=== PATIENT | male | born 1930 | race Caucasian/White ===

== ENCOUNTER 2017-10-27 11:07 | Inpatient (IN) | payer MEDICARE ==
[~2017-10-27] VITALS: Ht 165.1 cm; Wt 105.7 kg
[~2017-10-27 11:07] MED LIST: ACETAMINOPHEN-1 EAC1; ACETAMINOPHEN-1 EAC1 PO; ALEVE220 MG PO; AMBIEN 10 MG TA10 MG PO; AMBIEN 5 MG TABL5 M1 PO; ASA5UEC PO; ASPIRIN EC81 M1 PO; AZITHROMYCIN 2250 MG PO; BENICAR20 MG PO; BENICAR40 MG PO; BYSTOLIC 5 MG5 M1 PO; CALCIUM 500 +1 EAC5 PO; CALCIUM MAGNES1 EAC2 PO; CARAFATE 1 GM TA1 G1 PO; CENTRUM SILVER1 EAC4 PO; CLARINEX5 MG; CLARINEX5 MG PO; CLEOCIN HCL300 MG PO; COUMADIN 5 MG TA5 M1 PO; COUMADIN7.5 MG PO; EDARBI80 MG PO; FLAGYL500 MG PO; FLONASE 0.05%50 MCG NASAL; FLOVENT DISKUS50 MCG IH; HYDROCODON-ACE1 EAC7 PO; HYDROCODONE-AP1 EAC6 PO; IMDUR 60 MG TAB60 M1 PO; KEFLEX500 M1 PO; LASIX 40 MG TAB40 M1 PO; LASIX 40 MG TAB40 M2 PO; LINZESS145 MCG PO; LIPITOR 20 MG T20 M1 PO; LIPITOR20 MG PO; MINOCIN100 MG PO; NITROGLYCERIN0.4 MG PO; OMEGA-31000 M1 PO; OMEPRAZOLE20 M2 PO; ONDANSETRON HCL4 M2 PO; PHENERGAN 25 MG25 M1 PO; POTASSIUM20 PO; PREDNISONE 10 M10 MG PO; PRESERVISION A1 EAC2 PO; PRESERVISION L1 EACH PO; PROSCAR 5MG TABL5 MG PO; RESTORIL15 MG PO; TRAZODONE HCL50 MG PO; TYLENOL W/CODEI1 TA2 PO; VERTICALM25 MG PO; XANAX 0.25 MG0.25 MG PO; XARELTO20 MG PO; ZOFRAN ODT4 MG PO; [UNRECOGNIZED DRUG - SUPPLY] PO
[2017-10-27 11:16] VITALS: BP 183/83
[2017-10-27 11:46] LABS: HEMATOCRIT 33.9 % (42.0-52.0); HEMOGLOBIN 10.7 gm/dL (14.0-18.0); MCH 26.4 pg (26.0-34.0); MCHC 31.5 g/dL (28.0-37.0); MCV 83.9 fL (80.0-100.0); MPV 7.4 fl. (7.2-11.1); NUCLEATED RBCS 0 /100WBC; PLATELET COUNT* 210 thou/uL (150-400); RBC 4.04 mil/uL (4.50-6.00); RDW-CV 16.8 % (10.5-14.5)
[2017-10-27 11:54] LABS: ANION GAP 8 mmol/L (7-16); BUN 20 mg/dL (7-18); CALCIUM 8.5 mg/dL (8.5-10.1); CHLORIDE 110 mmol/L (98-107); CO2 27 mmol/L (21-32); CREATININE 0.8 mg/dL (0.6-1.3); GLUCOSE 146 mg/dL (70-99); POTASSIUM 3.7 mmol/L (3.5-5.1); SODIUM 145 mmol/L (136-145)
[2017-10-27 12:01] LABS: ALBUMIN 3.2 g/dL (3.4-5.0); ALKALINE PHOSPHATASE 149 U/L (46-116); LIPASE 67 U/L (73-393); SGOT 33 U/L (15-37); SGPT 41 U/L (30-65); TOTAL BILIRUBIN 0.5 mg/dL (<0.1-1.0); TOTAL PROTEIN 6.8 g/dL (6.4-8.2); TROPONIN-I LEVEL <0.06 ng/mL (<0.06)
[2017-10-27 12:13] LABS: ABSOLUTE EOSINOPHILS 0.4 thou/uL (0.0-0.7); ABSOLUTE LYMPHOCYTES 1.9 thou/uL (0.8-5.3); ABSOLUTE MONOCYTES 1.3 thou/uL (0.0-1.2); ABSOLUTE NEUTROPHILS 15.4 thou/uL (1.6-8.1); OVALOCYTES 1+; PLATELET ESTIMATE ADEQUATE
[2017-10-27 12:14] LABS: HYPOCHROMASIA 1+
[2017-10-27 12:15] LABS: ANISOCYTOSIS 1+; POIKILOCYTOSIS 1+
[2017-10-27] MEDS ORDERED: ASA81BEC PO (14:00)
[2017-10-27] MEDS ORDERED: IMDUR 60 MG TAB60 M1 PO (14:01)
[2017-10-27] MEDS ORDERED: RESTORIL15 MG PO (14:01)
[2017-10-27] MEDS ORDERED: XARELTO20 MG PO (14:01)
[2017-10-27] MEDS ORDERED: PHENERGAN 25 MG25 M1 PO (14:02)
[2017-10-27 15:00] VITALS: BP 152/44
--- NOTE | 2017-10-27 16:42 | EKG ---
[place] [address] ELECTROCARDIOGRAM REPORT Name: TEODORO LYN Room: [address] ADM IN M.R.#: [id number] Admission: 10/27/17 Attend Phys: Zenon Grimaldo MD Discharge: Date of : 31 Report #: [id number] THIS REPORT FOR: //name// [facility] ED Test Date: 2017-10-27 Test Time: 11:42:48 Pat Name: TEODORO LYN Department: Room: [facility] Gender: Consumer Insight Analyst: Bebeto SALGUERO : 1930 Requested By: Mati Jacome Order Number: [id number] MD: Fred Avila Measurements Intervals [place] Rate: 60 P: 154 OK: 105 QRS: -72 QRSD: 203 T: 72 QT: 486 QTc: 486 Interpretive Statements Ventricularly paced rhythm Compared to ECG 07/11/2017 19:30:04 No significant changes noted Electronically Signed On 10-27-2017 16:42:05 CDT by Fred Avila [email or web address] <ELECTRONICALLY SIGNED> By: Fred Avila MD, [facility] 10/27/17 1642 1142 1142 Fred Avila MD, [facility] /EPI
[2017-10-27 20:00] VITALS: BP 116/48
[2017-10-28] VITALS: BP 114/48
[2017-10-28 04:36] VITALS: BP 120/46
[2017-10-28 05:08] LABS: CREATININE 0.8 mg/dL (0.6-1.3); MAGNESIUM 1.4 mg/dL (1.8-2.4); POTASSIUM 3.6 mmol/L (3.5-5.1)
[2017-10-28 06:05] LABS: ABSOLUTE EOSINOPHILS 0.5 thou/uL (0.0-0.7); ABSOLUTE LYMPHOCYTES 1.1 thou/uL (0.8-5.3); ABSOLUTE MONOCYTES 0.9 thou/uL (0.0-1.2); ABSOLUTE NEUTROPHILS 8.1 thou/uL (1.6-8.1); BASOPHILS 0.3 %; EOSINOPHILS 4.4 %; HEMATOCRIT 27.1 % (42.0-52.0); HEMOGLOBIN 8.8 gm/dL (14.0-18.0); LYMPHOCYTES 10.5 %; MCH 26.9 pg (26.0-34.0); MCHC 32.5 g/dL (28.0-37.0); MONOCYTES 8.7 %; NUCLEATED RBCS 0 /100WBC; PLATELET COUNT* 171 thou/uL (150-400); POLYS 76.1 %; RBC 3.26 mil/uL (4.50-6.00); RDW-CV 16.9 % (10.5-14.5); WBC 10.6 thou/uL (4.0-11.0)
[2017-10-28 08:00] VITALS: BP 136/61
[2017-10-28 11:43] VITALS: BP 131/63
[2017-10-28 16:00] VITALS: BP 143/75
[2017-10-28 20:00] VITALS: BP 124/56
[2017-10-28 23:43] LABS: CREATININE 0.8 mg/dL (0.6-1.3); MAGNESIUM 1.6 mg/dL (1.8-2.4); POTASSIUM 3.7 mmol/L (3.5-5.1)
[2017-10-29] VITALS: BP 138/63
[2017-10-29 04:00] VITALS: BP 141/71
[2017-10-29 05:20] LABS: ABSOLUTE EOSINOPHILS 0.5 thou/uL (0.0-0.7); ABSOLUTE LYMPHOCYTES 1.5 thou/uL (0.8-5.3); ABSOLUTE MONOCYTES 0.8 thou/uL (0.0-1.2); ABSOLUTE NEUTROPHILS 5.4 thou/uL (1.6-8.1); BASOPHILS 0.3 %; EOSINOPHILS 6.5 %; HEMATOCRIT 27.7 % (42.0-52.0); HEMOGLOBIN 8.9 gm/dL (14.0-18.0); MCH 26.6 pg (26.0-34.0); MCHC 32.2 g/dL (28.0-37.0); MCV 82.5 fL (80.0-100.0); MONOCYTES 9.8 %; MPV 7.6 fl. (7.2-11.1); NUCLEATED RBCS 0 /100WBC; PLATELET COUNT* 164 thou/uL (150-400); POLYS 65.4 %; RBC 3.35 mil/uL (4.50-6.00); WBC 8.3 thou/uL (4.0-11.0)
[2017-10-29 07:21] LABS: ALBUMIN 2.6 g/dL (3.4-5.0); CALCIUM 8.4 mg/dL (8.5-10.1); CREATININE 0.9 mg/dL (0.6-1.3); POTASSIUM 3.8 mmol/L (3.5-5.1); TOTAL BILIRUBIN 0.4 mg/dL (<0.1-1.0); TOTAL PROTEIN 5.7 g/dL (6.4-8.2)
[2017-10-29 08:26] VITALS: BP 160/69
[2017-10-29 08:55] LABS: URINE BILIRUBIN NEGATIVE (Negative); URINE BLOOD 2+ (Negative); URINE CLARITY CLEAR; URINE COLOR YELLOW; URINE GLUCOSE-RANDOM NEGATIVE (Negative); URINE KETONES NEGATIVE (Negative); URINE LEUKOCYTES-REFLEX NEGATIVE (Negative); URINE NITRITE-REFLEX NEGATIVE (Negative); URINE PROTEIN TRACE (Negative); URINE SPECIFIC GRAVITY 1.025 (1.005-1.030); URINE UROBILINOGEN 0.2 E.U./dl (0.2-1.0)
[2017-10-29 09:01] LABS: BACTERIA-REFLEX 1-9 Few /HPF (None Seen); CASTS None Seen /LPF (None Seen); CRYSTALS None Seen /LPF (None Seen); SQUAMOUS 0-3 Few /LPF (0-3); URINE WBC-REFLEX None Seen /HPF (0-5)
[2017-10-29 12:22] VITALS: BP 163/65
[2017-10-29 14:00] VITALS: BP 151/69
[2017-10-29 20:00] VITALS: BP 147/70
[2017-10-30] VITALS: BP 131/64
[2017-10-30 04:00] VITALS: BP 165/88
[2017-10-30 05:12] LABS: HEMATOCRIT 27.6 % (42.0-52.0); MCH 26.9 pg (26.0-34.0); MCHC 32.6 g/dL (28.0-37.0); MCV 82.5 fL (80.0-100.0); MPV 7.8 fl. (7.2-11.1); RBC 3.35 mil/uL (4.50-6.00); RDW-CV 16.8 % (10.5-14.5); WBC 7.5 thou/uL (4.0-11.0)
[2017-10-30 06:47] LABS: ALBUMIN 2.6 g/dL (3.4-5.0); CALCIUM 8.2 mg/dL (8.5-10.1); CREATININE 0.8 mg/dL (0.6-1.3); MAGNESIUM 1.9 mg/dL (1.8-2.4); POTASSIUM 3.8 mmol/L (3.5-5.1); TOTAL BILIRUBIN 0.5 mg/dL (<0.1-1.0); TOTAL PROTEIN 5.4 g/dL (6.4-8.2)
[2017-10-30 08:00] VITALS: BP 150/78
[2017-10-30 11:43] VITALS: BP 151/69
== END 2017-10-30 18:02 | disposition left against medical advice (07) | DRG 871 ==
LOC: M.ERS 11:07 → M.2W 13:16 → M.TBA-ER 13:16 → M.2W 15:20
PROVIDERS: Family Medicine; Internal Medicine; ADMIT Internal Medicine
DX: A41.9 Sepsis, unspecified organism (principal); J69.0 Pneumonitis due to inhalation of food and vomit; I50.32 Chronic diastolic (congestive) heart failure; I10 Essential (primary) hypertension; H35.30 Unspecified macular degeneration; I25.10 Atherosclerotic heart disease of native coronary artery without angina pectoris; M19.90 Unspecified osteoarthritis, unspecified site; G89.29 Other chronic pain; E87.8 Other disorders of electrolyte and fluid balance, not elsewhere classified; R31.29 Other microscopic hematuria; R26.81 Unsteadiness on feet; Z87.442 Personal history of urinary calculi; I25.2 Old myocardial infarction; Z95.5 Presence of coronary angioplasty implant and graft; Z95.0 Presence of cardiac pacemaker; Z90.49 Acquired absence of other specified parts of digestive tract; Z79.01 Long term (current) use of anticoagulants; Z79.82 Long term (current) use of aspirin; Z79.899 Other long term (current) drug therapy; Z88.1 Allergy status to other antibiotic agents; Z88.6 Allergy status to analgesic agent; Z88.8 Allergy status to other drugs, medicaments and biological substances

== ENCOUNTER → 2017-11-14 | Outpatient (CLI) | payer MEDICARE ==
[~2017-11-14] MED LIST changes: +ASA81BEC PO
== END ==
LOC: M.RAD 12:49
DX: J18.9 Pneumonia, unspecified organism (principal)

== ENCOUNTER → 2017-12-30 | Outpatient (CLI) | payer MEDICARE | LOC: M.RAD 10:24 | DX: I51.7 Cardiomegaly (principal); J98.11 Atelectasis; Z95.0 Presence of cardiac pacemaker ==

== ENCOUNTER 2018-12-15 05:36 | Emergency (ER) | payer MEDICARE ==
[~2018-12-15] VITALS: Ht 162.6 cm; Wt 95.3 kg
[2018-12-15] MEDS ORDERED: [UNRECOGNIZED DRUG - OTHER] (06:08)
[2018-12-15] MEDS ORDERED: ERYTHROMYCIN E3.5 G3 OPHTHALMIC (06:09)
[2018-12-15 07:04] LABS: HEMATOCRIT 35.3 % (42.0-52.0); HEMOGLOBIN 11.8 gm/dL (14.0-18.0); MCH 31.5 pg (26.0-34.0); MCHC 33.5 g/dL (28.0-37.0); MCV 93.9 fL (80.0-100.0); MPV 7.4 fl. (7.2-11.1); RBC 3.75 mil/uL (4.50-6.00); RDW-CV 16.2 % (10.5-14.5); WBC 5.6 thou/uL (4.0-11.0)
[2018-12-15 07:09] LABS: CALCIUM 8.6 mg/dL (8.5-10.1); CREATININE 0.7 mg/dL (0.6-1.3); POTASSIUM 3.5 mmol/L (3.5-5.1)
[2018-12-15 07:14] LABS: TOTAL BILIRUBIN 0.7 mg/dL (<0.1-1.0); TOTAL PROTEIN 6.2 g/dL (6.4-8.2)
[2018-12-15 07:48] VITALS: BP 158/74
== END 2018-12-15 07:49 | disposition home or self-care (01) ==
LOC: M.ERS 05:36
PROVIDERS: Emergency Medicine Emergency Medical Services
DX: K92.2 Gastrointestinal hemorrhage, unspecified (principal); I10 Essential (primary) hypertension; G47.30 Sleep apnea, unspecified; H35.30 Unspecified macular degeneration; Z88.1 Allergy status to other antibiotic agents; Z88.8 Allergy status to other drugs, medicaments and biological substances; Z88.6 Allergy status to analgesic agent; Z87.442 Personal history of urinary calculi; Z95.5 Presence of coronary angioplasty implant and graft; Z95.0 Presence of cardiac pacemaker; Z90.49 Acquired absence of other specified parts of digestive tract

== ENCOUNTER 2019-02-10 05:32 | Inpatient (IN) | payer MEDICARE ==
[~2019-02-10] VITALS: Ht 165.1 cm; Wt 93.9 kg
[~2019-02-10 05:32] MED LIST changes: +APAP650 PO; +CARVEDILOL3.125 MG PO; +CEFUROXIME250 MG PO; +CLOPIDOGREL75 MG PO; +DIOVAN160 MG PO; +ERYTHROMYCIN E3.5 G3 OPHTHALMIC; +NITROGLYCERIN0.4 MG SUBLING; +[UNRECOGNIZED DRUG - OTHER]
[2019-02-10 05:35] VITALS: BP 125/77
[2019-02-10 05:57] LABS: ABSOLUTE BASOPHILS 0.1 thou/uL (0.0-0.2); ABSOLUTE EOSINOPHILS 0.1 thou/uL (0.0-0.7); ABSOLUTE LYMPHOCYTES 0.8 thou/uL (0.8-5.3); ABSOLUTE NEUTROPHILS 10.4 thou/uL (1.6-8.1); BASOPHILS 0.9 %; EOSINOPHILS 0.9 %; HEMATOCRIT 34.2 % (42.0-52.0); HEMOGLOBIN 11.5 gm/dL (14.0-18.0); LYMPHOCYTES 6.3 %; MCH 32.6 pg (26.0-34.0); MCHC 33.7 g/dL (28.0-37.0); MCV 96.9 fL (80.0-100.0); MONOCYTES 8.4 %; MPV 7.2 fl. (7.2-11.1); NUCLEATED RBCS 0 /100WBC; PLATELET COUNT* 218 thou/uL (150-400); POLYS 83.5 %; RBC 3.53 mil/uL (4.50-6.00); RDW-CV 14.2 % (10.5-14.5); WBC 12.5 thou/uL (4.0-11.0)
[2019-02-10 06:08] LABS: APTT 50.1 Seconds (25.0-31.3); INR 1.3; PROTIME 12.8 Seconds (9.20-11.50)
[2019-02-10 06:12] LABS: CALCIUM 8.9 mg/dL (8.5-10.1); CREATININE 0.8 mg/dL (0.6-1.3); POTASSIUM 3.8 mmol/L (3.5-5.1)
[2019-02-10 06:22] LABS: ALBUMIN 2.6 g/dL (3.4-5.0); TOTAL BILIRUBIN 0.7 mg/dL (<0.1-1.0); TOTAL PROTEIN 6.9 g/dL (6.4-8.2); TROPONIN-I LEVEL 0.09 ng/mL (<0.06)
[2019-02-10 07:10] LABS: BE -4.5 mmol/L (-2 to +3); PCO2 33.6 mmHg (35.0-45.0); PO2 107.1 mmHg (75.0-100.0); pH 7.388 (7.340-7.450)
[2019-02-10 08:34] VITALS: BP 111/53
[2019-02-10 08:40] VITALS: BP 112/61
--- NOTE | 2019-02-10 12:57 | NUR ---
PT ADMITTED TO ROOM 218 VIA CART FROM ED AT APPROXIMATELY 0840. PT ORIENTED TO ROOM AND CALL LIGHT. ADMISSION ASSESSMENT AND HISTORY COMPLETED. REFER TO CHARTING. MEDICARE AND FALL AGREEMENT SIGNED AND PLACED IN FRONT OF CHART. SEPSIS SCREENING COMPLETED- PT SCREENED NEGATIVE. PT ADMITTED WITH ABDOMINAL PAIN AND PULMONARY INFILTRATES. PT DENIES ANY ABDOMINAL PAIN AT THIS TIME. COMPLAINS OF GENERALIZED ARTHRITIC PAIN. TREATED WITH PRN TYLENOL WITH CODEINE WITH RELIEF. PT TRACING V PACED ON THE HYDROMETEOROLOGIST WITH OCCASIONAL PVC'S. PT ON 2L NC SAT 98%. PT STATES HE WEARS 4L NC AT HOME. PT UP WITH 1 ASSIST AND WALKER TO BATHROOM. PT GOAL FOR TODAY IS TO REMAIN FREE FROM ABDOMINAL PAIN, MONITOR EKG, LABS AND IV ABX. AM ASSESSMENT CHARTED. MEDICATIONS PER SEP. PT REPOSITIONS SELF WITH REMINDERS. HOURLY ROUNDING OBSERVED. BED IN LOW POSITION. CALL LIGHT WITHIN REACH. WILL CONTINUE PLAN OF CARE.
[2019-02-10 13:35] VITALS: BP 101/48
[2019-02-10 17:37] VITALS: BP 115/57
[2019-02-10 20:00] VITALS: BP 118/66
[2019-02-11 00:38] VITALS: BP 99/49
[2019-02-11 04:00] VITALS: BP 120/60
--- NOTE | 2019-02-11 06:59 | NUR ---
ASSUMED PT CARE AT 1930. ASSESSMENT COMPLETED CHARTED. ABLE TO MAKE NEEDS KNOWN. C/O ARTHRITIS PAIN AND GAVE PRN PAIN MEDICATIONS. UP WITH WALKER AND ASSIST. PT RESTING IN BED MOST OF THE NIGHT. CPAP SET UP BUT WORE O2 THROUGHOUT THE NIGHT. WILL CONTINUE TO MONITOR.
[2019-02-11 07:30] VITALS: BP 113/66
[2019-02-11 12:35] VITALS: BP 120/67
[2019-02-11 16:48] VITALS: BP 105/88
--- NOTE | 2019-02-11 18:39 | NUR ---
PT AOX4 UP WITH 1 AND A WALKER TOLERATING 2L PER NC THIS SHIFT. PT APPROPRIATELY CALLS OUT FOR PAIN AND NAUSEA RELIEF. PT HAS LLE EDEMA. PT TOLERATING DIET AND PAIN THIS SHIFT. PT V PACED THIS SHIFT ON THE MONITOR. PT USING BSC THIS SHIFT. HOURLY ROUNDING MAINTAINED AND FALL PXN IN PLACE
[2019-02-11 20:00] VITALS: BP 114/58
[2019-02-12] VITALS: BP 112/37
[2019-02-12 04:00] VITALS: BP 131/62
--- NOTE | 2019-02-12 07:01 | NUR ---
ASSUMED PT CARE AT 1930. ASSESSMENT COMPLETED CHARTED. ABLE TO MAKE NEEDS KNOWN. UP WITH WALKER TO BSC A COUPLE TIMES DURING THE NIGHT. C/O ARTHRITIS PAIN AND PRN PAIN MEDICATION GIVEN NEEDED. PT RESTING IN BED AT THIS TIME. IV FLUIDS RUNNING PER P.O. WILL CONTINUE TO MONITOR.
[2019-02-12 07:30] VITALS: BP 122/57
[2019-02-12 11:57] VITALS: BP 126/66
--- NOTE | 2019-02-12 12:27 | EKG ---
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
[2019-02-12] MEDS ORDERED: CEFUROXIME250 MG PO (12:56)
--- NOTE | 2019-02-12 13:14 | NUR ---
Pt is A&O. Known to CM from last hospital stay. Resides at home with . Independent. Pt has a walker and cane that he can use for mobility. Has home o2 through [employer] and a cpap through [facility]. [facility] of [facility] [place]. Pt discharging to home today, faxed resumption orders to [facility] , and updated liaison of dc. Following.
== END 2019-02-12 14:49 | disposition home health service (06) | DRG 177 ==
LOC: M.ERS 05:32 → M.TBA-ER 07:06 → M.2W 07:06
PROVIDERS: Personal Emergency Response Attendant; ADMIT Internal Medicine
DX: J15.6 Pneumonia due to other Gram-negative bacteria (principal); I50.43 Acute on chronic combined systolic (congestive) and diastolic (congestive) heart failure; K50.90 Crohn's disease, unspecified, without complications; M62.82 Rhabdomyolysis; I11.0 Hypertensive heart disease with heart failure; I48.91 Unspecified atrial fibrillation; I25.10 Atherosclerotic heart disease of native coronary artery without angina pectoris; G47.33 Obstructive sleep apnea (adult) (pediatric); K59.09 Other constipation; T50.905A Adverse effect of unspecified drugs, medicaments and biological substances, initial encounter; Y92.89 Other specified places as the place of occurrence of the external cause; I25.2 Old myocardial infarction; Z85.828 Personal history of other malignant neoplasm of skin; Z95.5 Presence of coronary angioplasty implant and graft; Z95.0 Presence of cardiac pacemaker; Z90.49 Acquired absence of other specified parts of digestive tract; Z87.442 Personal history of urinary calculi; Z79.02 Long term (current) use of antithrombotics/antiplatelets; Z79.01 Long term (current) use of anticoagulants; Z79.899 Other long term (current) drug therapy; Z88.1 Allergy status to other antibiotic agents; Z88.6 Allergy status to analgesic agent; Z88.8 Allergy status to other drugs, medicaments and biological substances

== ENCOUNTER 2019-02-15 19:32 | Inpatient (IN) | payer MEDICARE ==
[~2019-02-15] VITALS: Ht 165.1 cm; Wt 92.3 kg
[2019-02-15 19:38] VITALS: BP 118/73
[2019-02-15 20:19] LABS: ABSOLUTE EOSINOPHILS 0.3 thou/uL (0.0-0.7); ABSOLUTE MONOCYTES 0.6 thou/uL (0.0-1.2); ABSOLUTE NEUTROPHILS 4.2 thou/uL (1.6-8.1); BASOPHILS 0.7 %; EOSINOPHILS 4.6 %; HEMOGLOBIN 10.2 gm/dL (14.0-18.0); MCH 32.8 pg (26.0-34.0); MCHC 33.9 g/dL (28.0-37.0); MCV 96.7 fL (80.0-100.0); MONOCYTES 10.1 %; MPV 7.2 fl. (7.2-11.1); NUCLEATED RBCS 0 /100WBC; PLATELET COUNT* 155 thou/uL (150-400); POLYS 67.6 %; RDW-CV 14.7 % (10.5-14.5); WBC 6.2 thou/uL (4.0-11.0)
[2019-02-15 20:29] LABS: APTT 42.2 Seconds (25.0-31.3); CALCIUM 8.6 mg/dL (8.5-10.1); CREATININE 0.7 mg/dL (0.6-1.3); INR 1.6; POTASSIUM 3.9 mmol/L (3.5-5.1)
[2019-02-15 20:40] LABS: ALBUMIN 2.4 g/dL (3.4-5.0); MAGNESIUM 1.5 mg/dL (1.8-2.4); TOTAL BILIRUBIN 0.3 mg/dL (<0.1-1.0); TOTAL PROTEIN 6.2 g/dL (6.4-8.2); TROPONIN-I LEVEL 0.07 ng/mL (<0.06)
[2019-02-15 22:35] VITALS: BP 131/60
[2019-02-15 23:10] VITALS: BP 130/73
[2019-02-16] VITALS: BP 98/65
[2019-02-16] MEDS ORDERED: FISH OIL 1,001000 M2 PO (02:23)
--- NOTE | 2019-02-16 03:04 | NUR ---
RECEIVED PT FROM ER PER CART ACCOMPANIED BY DANIELE RUSSO. PT IS AWAKE AND ORIENTED X4. VSS ON 4L OF O2/NC. SIDE SEAM ENVELOPE MACHINE OPERATOR PLACED, PT IS VPACED. ADMISSION ASSESSMENTS DONE AND CHARTED. ADVISED ON THE USE OF CALL LIGHT. ORIENTED ON ROOM SET UP. HIGH FALL PRECAUTIONS IN PLACE. HOURLY ROUNDING DONE FOR PT SAFETY. WILL CONTINUE TO MONITOR PT.
[2019-02-16 04:00] VITALS: BP 118/60
--- NOTE | 2019-02-16 08:45 | NUR ---
Pt is A&O. Resides at home with . Known to this CM from previous hospital stays, Pt was recently dc to home with [facility] on 02/12. CM updated [facility] of admission. Pt uses a walker or cane at home for mobility. Pt has home o2 through [employer] and a cpap through [employer]. Hx of [facility]. Pt's goal is to return [place] at [place]. Following.
[2019-02-16 08:47] VITALS: BP 127/67
--- NOTE | 2019-02-16 10:08 | NUR ---
RECEIVED REPORT FROM GINA AND ASSUMED CARE OF PT @ 8320.PT IS A/O X4,VSS,TRACING V PACED WITH BBB ON THE MONITOR.PT REMAINS ON 4L O2 NC.IV PATENT AND SALINE LOCKED.PT MAINTAINS NPO STATUS FOR STRESS TEST THIS AFTERNOON.UA SAMPLE SENT.PT STATES HE FEELS ANXIOUS BUT IS COOPERATIVE.NO C/O PAIN.PT LEFT RESTING IN BED WITH CALL LIGHT AND FALL PRECAUTIONS IN PLACE.WILL CONTINUE TO MONITOR.
--- NOTE | 2019-02-16 10:43 | EKG ---
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 : 1930 Requested By: Ish Ashley Order Number: [id number] MD: Garrett Oscar Measurements Intervals [place] Rate: 102 P: [place]: QRS: 122 QRSD: 203 T: -33 QT: 502 QTc: 655 Interpretive Statements Ventricular-paced complexes No further rhythm analysis attempted due to paced rhythm atrial fibrillation Baseline wander in lead(s) V6 Compared to ECG 02/10/2019 05:37:42 no change Electronically Signed On 02-16-2019 10:42:48 CDT by Garrett Oscar [email or web address] <ELECTRONICALLY SIGNED> By: Garrett Oscar MD, [facility]AC 02/16/19 1042 35 35 Garrett Oscar MD, [facility] /EPI
[2019-02-16 12:30] VITALS: BP 167/78
--- NOTE | 2019-02-16 15:29 | NUR ---
I have reviewed the documentation by CITLALI CALDWELL from TODAY to 02/16/19 and I concur with it. ARIANA WATSON
[2019-02-16 15:38] VITALS: BP 132/70
[2019-02-16 20:00] VITALS: BP 132/61
[2019-02-17] VITALS: BP 140/60
[2019-02-17 04:00] VITALS: BP 115/64
[2019-02-17 04:54] LABS: ABSOLUTE EOSINOPHILS 0.3 thou/uL (0.0-0.7); ABSOLUTE LYMPHOCYTES 1.1 thou/uL (0.8-5.3); ABSOLUTE MONOCYTES 0.8 thou/uL (0.0-1.2); ABSOLUTE NEUTROPHILS 5.1 thou/uL (1.6-8.1); BASOPHILS 0.6 %; EOSINOPHILS 4.3 %; HEMATOCRIT 30.9 % (42.0-52.0); HEMOGLOBIN 10.4 gm/dL (14.0-18.0); LYMPHOCYTES 14.9 %; MCH 32.2 pg (26.0-34.0); MCHC 33.8 g/dL (28.0-37.0); MCV 95.2 fL (80.0-100.0); MONOCYTES 10.3 %; MPV 7.1 fl. (7.2-11.1); NUCLEATED RBCS 0 /100WBC; PLATELET COUNT* 169 thou/uL (150-400); POLYS 69.9 %; RBC 3.24 mil/uL (4.50-6.00); RDW-CV 14.4 % (10.5-14.5); WBC 7.3 thou/uL (4.0-11.0)
[2019-02-17 05:03] LABS: APTT 40.3 Seconds (25.0-31.3); INR 1.6; PROTIME 15.9 Seconds (9.20-11.50)
[2019-02-17 05:12] LABS: ALBUMIN 2.3 g/dL (3.4-5.0); CALCIUM 8.4 mg/dL (8.5-10.1); CREATININE 0.8 mg/dL (0.6-1.3); DIRECT BILIRUBIN 0.1 mg/dL (<0.1-0.3); MAGNESIUM 1.8 mg/dL (1.8-2.4); POTASSIUM 3.2 mmol/L (3.5-5.1); TOTAL BILIRUBIN 0.6 mg/dL (<0.1-1.0); TOTAL PROTEIN 5.9 g/dL (6.4-8.2)
--- NOTE | 2019-02-17 05:18 | NUR ---
ASSUMED CARE OF PT AFTER REPORT AT 1930. PT A&OX4. VSS. PHYSICAL ASSESSMENT COMPLETED AND CHARTED. PT ON O2 AT 4L NC. PT TRACING VPACED ON TELE. PT UPSTANDBY TO BSC. PT REQUESTED FOR A STOOL SOFTENER- DR SALAZAR INFORMED WITH NEW ORDER. PT DENIES ANY PAIN OR SOA. PT ABLE TO SLEEP WELL ON BED. CALL LIGHT WITHIN REACH.
[2019-02-17 08:00] VITALS: BP 124/51
--- NOTE | 2019-02-17 10:08 | NUR ---
ASSUMED CARE OF PATIENT THIS AM AT 0730. PATIENT IS ALERT AND ORIENTED X 4. HE C/O PERIODS OF SOA. O2 SATS ARE 97 TO 98% ON 4 LITERS. PATIENT IS ANXIOUS AND TEARFUL AT TIMES. IV ANTIBIOTICS INFUSED PER ORDER. PATIENT CONTINUES TO HAVE DIFFICULTY SWALLOWING AND FREQUENT BELCHING. LARGE PILLS WERE CRUSHED AND PUT IN PUDDING. PATIENT ABLE TO SWALLOW THEM EASIER. TELE SHOWS V PACED. WILL CONTINUE TO MONITOR. INCREASED ACTIVITY ENCOURAGED. PATIENT IS WORKING WITH PT. NO FALLS OR INJURY.
[2019-02-17 11:30] VITALS: BP 122/53
[2019-02-17 16:00] VITALS: BP 126/67
[2019-02-17 20:00] VITALS: BP 118/46
[2019-02-17 22:27] LABS: URINE BILIRUBIN NEGATIVE (Negative); URINE BLOOD NEGATIVE (Negative); URINE CLARITY CLEAR; URINE COLOR YELLOW; URINE GLUCOSE-RANDOM NEGATIVE (Negative); URINE KETONES NEGATIVE (Negative); URINE LEUKOCYTES-REFLEX NEGATIVE (Negative); URINE NITRITE-REFLEX NEGATIVE (Negative); URINE PROTEIN NEGATIVE (Negative); URINE SPECIFIC GRAVITY <= 1.005 (1.005-1.030); URINE UROBILINOGEN 0.2 E.U./dl (0.2-1.0)
[2019-02-17 22:34] LABS: AMP/METHAMP Negative (Negative); BARBITURATES Negative (Negative); BENZODIAZEPINES Negative (Negative); COCAINE Negative (Negative); METHADONE Negative (Negative); OPIATES POSITIVE (Negative); PCP Negative (Negative); THC Negative (Negative)
[2019-02-18] VITALS: BP 99/50
[2019-02-18 04:00] VITALS: BP 112/59
[2019-02-18 05:06] LABS: CALCIUM 8.8 mg/dL (8.5-10.1); CREATININE 0.8 mg/dL (0.6-1.3); MAGNESIUM 1.8 mg/dL (1.8-2.4); POTASSIUM 3.7 mmol/L (3.5-5.1)
--- NOTE | 2019-02-18 05:19 | NUR ---
ASSUMED CARE OF PT AFTER REPORT AT 1930. PT A&OX4. VSS. PHYSICAL ASSESSMENT COMPLETED AND CHARTED. PT ON O2 AT 4L NC. PT TRACING VPACED ON TELE. PT UPSTANDBY TO BSC. PT COMPLAINED OF GENERALIZED BODY PAIN & NAUSEA- MEDS GIVEN PER SEP. URINE SPECIMEN SENT TO LAB ORDERED. PT ABLE TO SLEEP WELLON BED. CALL LIGHT WITHIN REACH.
[2019-02-18 08:00] VITALS: BP 141/59
[2019-02-18 11:57] VITALS: BP 113/53
[2019-02-18 15:58] VITALS: BP 123/57
--- NOTE | 2019-02-18 18:38 | NUR ---
ASSUMED PT CARE AT 0700, A&O X4, VSS, CONT ON O2 AT 4LPM VIA NC, UP WITH STANDBY AND WALKER, HOT DIMPLING MACHINE OPERATOR TRACING VPACED WITH PVC'S, FULL ASSESSMENT CHARTED. PT HAS REDDENED AREA UNDER ABDOMINAL FOLD TO LEFT SIDE, CLEANED AND PLACED INTRA DRY TO AREA. HOURLY ROUNDING COMPLETED.
[2019-02-18 20:00] VITALS: BP 112/59
[2019-02-19 00:39] VITALS: BP 121/61
[2019-02-19 04:00] VITALS: BP 121/58
[2019-02-19 05:08] LABS: CALCIUM 9.1 mg/dL (8.5-10.1); CREATININE 0.9 mg/dL (0.6-1.3); MAGNESIUM 1.6 mg/dL (1.8-2.4); POTASSIUM 3.7 mmol/L (3.5-5.1)
--- NOTE | 2019-02-19 05:42 | NUR ---
ASSUMED CARE OF PT AFTER REPORT AT 1930. PT A&OX4. VSS. PHYSICAL ASSESSMENT COMPLETED AND CHARTED. PT ON O2 AT 4L NC. PT REFUSED TO USED CPAP LAST NIGHT. PT TRACING VPACED ON TELE. PT UPSTANDBY TO BSC. PT WITH RASHES ON LEFT ABDOMEN-PHOTOGRAPH WAS TAKEN. INTERDRY IN PLACE. PT COMPLAINED OF GENERALIZED BODY PAIN- MEDS GIVEN EPR SEP. CALL LIGHT WITHIN REACH.
[2019-02-19] MEDS ORDERED: LASIX 40 MG TAB40 M1 PO (08:47)
--- NOTE | 2019-02-19 08:58 | CON ---
[address] [address] CONSULTATION Name: TEODORO LYN Room: [address] IN .R.#: [id number] Admission: 02/15/19 Attend Phys: Angie Brandt MD Discharge: Date of : 31 Report #: [id number] THIS REPORT FOR: //name// CC: Sharon Brandt REASON FOR CONSULTATION: Respiratory failure, pneumonia. HISTORY OF PRESENT ILLNESS: This is a pleasant 88-year-old male patient, who was admitted to this facility on 02/15/2019 with a chief complaint of left-sided pressure. The patient was recently at this facility and found to have coronary artery disease and underwent evaluation. He had a recent cardiac stent placed earlier this month and on a prior hospitalization, he had some cough and shortness of breath. His chest x-ray showed pneumonia. He was treated with antibiotic, Rocephin and azithromycin; however, he left home on home oxygen at 4 liters per minute and he noticed that his breathing became worse, associated with cough and discomfort in the left side. He came back for evaluation and found the infiltrate in the left side of his lung field is getting worse. The patient has history of esophageal abnormality. 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 He denied any fever or chills. He has some sputum production, but it was difficult to get it up. Sometimes he would swallow it. He has no history of chronic lung disease that he knows of. No COPD. No asthma, never smoked. He has a history of diastolic heart failure and multiple esophageal sphincters as mentioned above, he is on Xarelto, also at baseline. The patient remains on 4 liters oxygen. Currently, he has no fever, no headache, no blurring of vision. No chest pain at this point. No back pain, no change in bowel habits. No dysuria, no frequency, no urgency or lower extremity edema. No change in appetite. REVIEW OF SYSTEMS: All systems reviewed with the patient and negative other than as mentioned above. PAST MEDICAL HISTORY: History of coronary artery disease, hypertension, status post cardiac stenting, diastolic heart failure, status post pacemaker, history of renal stones, history of skin cancer, history of nutcracker esophagus and atrial fibrillation, on anticoagulation. PAST SURGICAL HISTORY: Pacemaker placement, renal stone disease, cholecystectomy, prostate surgery, eyelid surgery, cataract surgery, tonsillectomy. FAMILY HISTORY: Reviewed with the patient, noncontributory. SOCIAL HISTORY: Does not smoke, does not drink alcohol, [place] [address] CONSULTATION Name: TEODORO LYN LUCAS Room: [address] IN ..#: [id number] Admission: 02/15/19 Attend Phys: Angie Brandt MD Discharge: Date of : 31 Report #: [id number] MEDICATIONS: Home medications: He is on the Vistaril, Xarelto, Restoril, vitamin supplement, Lipitor, Phenergan, Tylenol, finasteride. PHYSICAL EXAMINATION: VITAL SIGNS: He was on 4 liters oxygen with O2 saturation more than 90%, blood pressure 130/70, breathing 18 times per minute, pulse rate 62, temperature 36.5. GENERAL: The patient is sitting at the side of the bed. HEAD: Normocephalic, atraumatic. EYES: Pupils are reactive to light. ORAL CAVITY: Moist mucous membrane. Mallampati of 2-3. NECK: Supple. Full range of movement. No focal lymphadenopathy. No palpable thyroid. Trachea is central. Externally, looks normal. Nasal cavity patent passages. CHEST: Diminished air movement at the left lung base with some rhonchi. I did not hear wheezes. No tenderness on palpation of the chest. HEART: S1, S2, no murmur. ABDOMEN: Benign, soft, lax, nontender, positive bowel sounds. EXTREMITIES: Lower extremity: No edema, no calf tenderness. SKIN: Normal for age and race. PSYCHIATRIC: Mood and affect appropriate. LABORATORY DATA: His chest x-ray demonstrated progression of the left lower lobe infiltrate with some atelectasis on the right side, some pleural effusion. The patient's white blood count 6.2, hemoglobin 10.2, platelets 455. His creatinine is 0.8 with potassium of 3.2, sodium 142. His BNP was elevated. IMPRESSION: 1. Taaxs-pg-nttogxr respiratory failure, at baseline, he is on 4 liters oxygen. 2. Obstructive sleep apnea, on CPAP at home. 3. Pulmonary infiltrate. 4. Pneumonia. 5. Diastolic heart failure. 6. Coronary artery disease. 7. Nutcracker esophagus. 8. Dysphagia. PLAN: I suspect the patient's pneumonia and infiltrate is related to his dysphagia with potential aspiration. I agree with speech evaluation. He needs to be on a modified diet and will follow recommendations of speech pathology. I agree with antibiotic with Josephinesyn, at this point, continue to wean oxygen down. I do not suspect thromboembolic disease given the fact he is on Xarelto. I will continue to monitor fluid status and consider gentle diuresis on an as needed basis. I would continue CPAP. I did instruct him to bring his CPAP to the hospital. Also, I did discuss with the patient on the road when his pneumonia resolves, he [address] [address] CONSULTATION Name: TEODORO LYN Room: [address] IN .R.#: [id number] Admission: 02/15/19 Attend Phys: Angie Brandt MD Discharge: Date of : 31 Report #: [id number] can be reevaluated if he still needs the oxygen at home. Thank you for the consultation. <ELECTRONICALLY SIGNED> By: Mart Miller MD 02/19/19 0858 1032 1225Kelsey Nj MD /nt
[2019-02-19 11:43] VITALS: BP 124/63
--- NOTE | 2019-02-19 12:47 | NUR ---
Pt was to dc to home today, resumption orders faxed to [facility]. DC delayed, Pt to have the second part of his stress test tomorrow. Updated
--- NOTE | 2019-02-19 12:53 | CON ---
[address] [address] CONSULTATION Name: TEODORO LYN Room: [address] IN .R.#: [id number] Admission: 02/15/19 Attend Phys: Angie Brandt MD Discharge: Date of : 31 Report #: [id number] THIS REPORT FOR: //name// CC: Sharon Brandt DATE OF SERVICE: 02/16/2019 HISTORY OF PRESENT ILLNESS: The patient is an 88-year-old white male, who I was asked to see in the hospital today after he had an episode of chest pain. The patient has an extensive past medical history. His first coronary artery stenting was apparently performed in 2004 at [facility] by Dr. De La Torre. He notes 6 months later, he had restenosis of the stent and had to have repeat stenting. He is not very active at this time and ambulates with the walker. Apparently, several years ago, he developed symptomatic bradycardia and had a pacemaker inserted at [facility]. He just underwent a generator change about 5 months ago at [facility]. He does have a history of permanent atrial fibrillation, but has never been cardioverted. He has been chronically anticoagulated. He previously was on warfarin, but has been on Xarelto for several years. The patient was admitted to [place] on 01/20 after an episode of chest pain that radiated to his arm, became short of breath, diaphoretic, nausea and vomited. Paramedics were called. He was brought here to [place]. His troponin was elevated consistent with the non-STEMI. I saw him in consultation and performed a cardiac catheterization the following day on 01/21. I attempted the procedure from the right radial artery, but the right innominate artery was very tortuous, making the procedure difficult. It was then performed from the right femoral artery. Left ventriculography was not performed at that time. Results showed a 50% stenosis of the left main artery. There was a 90% proximal edge restenosis of the stent in the proximal LAD. There was a 99% stenosis of the second marginal branch of the circumflex and an 80% stenosis of the circumflex beyond the marginal branch and prior to a small distal posterolateral branch. I then placed drug-eluting stents in the second marginal branch of the circumflex and the proximal LAD. The iliac artery was noted to be very tortuous requiring placement of a long femoral sheath during the procedure. He was then placed on aspirin and Plavix in addition to Xarelto. Unfortunately, after the procedure, he became very confused and combative. However, he had no further chest pain. He was noted to have renal insufficiency after the procedure. He eventually was able to be discharged. He does note that after his discharge, he had to be readmitted with pneumonia here at [place] 2 weeks later. He is not very active because of his age and ambulates with the walker. Last night, he felt some chest discomfort. There was no radiation of the pain. No associated shortness of breath, nausea. Denied recent fever, cough, bleeding. He denied any rash. An ambulance was called. He was brought here to [place] and admitted. I was asked to see him for further evaluation and treatment. He did have some bel[address] [address] CONSULTATION Name: TEODORO LYN Room: [address] IN [facility]#: [id number] Admission: 02/15/19 Attend Phys: Angie Brandt MD Discharge: Date of : 31 Report #: [id number] with the episode. He denies recent exertional dyspnea, palpitations or syncope. PAST MEDICAL HISTORY: Otherwise, he has a history of hypertension, sleep apnea, macular degeneration. He has had previous left knee replacement, cholecystectomy, prostate surgery, kidney stone removal, ankle fracture, hypertension, and hyperlipidemia. No history of diabetes. MEDICATIONS: On admission consisted of trazodone, Xarelto, Restoril, omeprazole, atorvastatin, Lasix, valsartan, Xanax, Proscar, Plavix, aspirin. ALLERGIES: HE HAS INTOLERANCE TO CIPRO AND NONCOATED ASPIRIN. FAMILY HISTORY: His father had heart disease. SOCIAL HISTORY: He is . 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 No smoking or alcohol abuse. REVIEW OF SYSTEMS: He has had no history of stroke. He does have sleep apnea. No history of peptic ulcer disease, liver disease. He has chronic kidney disease. He has had kidney stones, had a skin cancer removed. No psychiatric illness. PHYSICAL EXAMINATION: GENERAL: Revealed an elderly, frail-appearing male, who appeared in no distress. VITAL SIGNS: He had a blood pressure of 120/60s, pulse of 60s, afebrile. HEENT: He was anicteric. Conjunctivae pink. Mucous membranes moist. NECK: Veins do not appear distended. CHEST: Clear to auscultation. CARDIOVASCULAR: Regular rate and rhythm. ABDOMEN: Soft. EXTREMITIES: Had trace edema. Dorsalis pedis pulse 1+ bilaterally. SKIN: Cool and dry. NEUROLOGIC: Nonfocal. DIAGNOSTIC DATA: ECG shows 100% ventricular paced rhythm. His underlying rhythm appeared to represent atrial fibrillation. The patient did have an echocardiogram done last month following his non-STEMI that showed left ventricular hypertrophy, ejection fraction of 50%, left atrial enlargement, aortic sclerosis, mild tricuspid insufficiency. No wall motion abnormalities. He had a portable chest x-ray last night that showed atelectasis, pulmonary infiltrate. Last week, he actually had a CT scan of the chest when he presented with pneumonia that showed no aortic dissection, consolidation left lower lobes, small effusion, and cardiomegaly. LABORATORY DATA: Sodium is 139, potassium 3.9, BUN 10, creatinine 0[place] [address] CONSULTATION Name: TEODORO LYN LUCAS Room: [address] IN [facility]#: [id number] Admission: 02/15/19 Attend Phys: Angie Brandt MD Discharge: Date of : 31 Report #: [id number] liver function studies were normal. Albumin is only 2.4. Troponin last month with his non-STEMI went up to 68. When he arrived in the Emergency Room last night, it was 0.08. Recent lipid profile, cholesterol is only 68, triglycerides 36, HDL 47, LDL 14. Recent TSH was 1.0. White blood cell count 6.2, hemoglobin 10.2, hematocrit 30.0. IMPRESSION AND RECOMMENDATIONS: 1. Chest pain. No evidence of recurrent infarction. Recent stenting. Recommend Lexiscan Cardiolite. 2. Atrial fibrillation. The patient is anticoagulated with Xarelto. 3. Recent placement of drug-eluting stents. Since the patient is on Xarelto after 3 months, I would discontinue the aspirin and continue Plavix by itself. 4. Hypertension. The patient is on an ARB. 5. Sleep apnea. 6. Sick sinus syndrome. The patient is ventricularly paced. 7. Macular degeneration. 8. Degenerative joint disease. The patient uses a walker. <ELECTRONICALLY SIGNED> By: Garrett Oscar MD, FACC 02/19/19 1253 0910 [id number] Oscar MD, FACC /nt
[2019-02-19 15:59] VITALS: BP 109/59
--- NOTE | 2019-02-19 16:21 | NUR ---
I have reviewed the documentation by CITLALI CALDWELL from TODAY to 02/19/19 and I concur with it. ARIANA WATSON
--- NOTE | 2019-02-19 18:19 | NUR ---
ASSUMED PT CARE AT 0700, PT A&O X4, UP WITH ASSIST X1 AND WALKER, VSS, HOSE SEAMER TRACING VPACED WITH PVC'S, REMAINS ON 4LPM O2, FULL ASSESSMENT CHARTED. PT UNABLE TO HAVE SECOND PART OF STRESS TEST D/T PT DIVULGING HE ATE CHOCOLATE AT APPROX 2000 YESTERDAY. PT WAS RE-EDUCATED ON NPO STATUS AFTER MIDNIGHT, PT STATES UNDERSTANDING. POSSIBLE DISCHARGE HOME TOMORROW WITH HOME HEALTH IF STRESS TEST NEGATIVE. SWALLOW STUDY COMPLETED, RESULTS CHARTED, HOURLY ROUNDING COMPLETED.
[2019-02-19 20:00] VITALS: BP 124/59
[2019-02-20 00:27] VITALS: BP 91/40
[2019-02-20 04:09] VITALS: BP 110/57
--- NOTE | 2019-02-20 05:53 | NUR ---
ASSUMED CARE OF PT AFTER REPORT AT 1930. PT A&OX4. VSS. PHYSICAL ASSESSMENT COMPLETED AND CHARTED. PT ON O2 AT 4L NC. PT TRACING VPACED ON TELE. PT UPSTANDBY TO BSC. PT COMPLAINED OF NECK PAIN- MEDS GIVEN PER SEP. INSTRUCTED PT ON NPO POST MIDNIGHT FOR STRESS TEST TODAY. PT ABLE TO SLEEP WELL. CALL LIGHT WITHIN REACH.
[2019-02-20 07:35] LABS: HEPATITIS B SURFACE AG Negative (Negative)
[2019-02-20 13:14] VITALS: BP 110/57
--- NOTE | 2019-02-20 13:18 | CARDNUC ---
[place] [address] CARDIAC NUCLEAR IMAGING REPORT Name: RIKITEODORO LUCAS Room: [address] IN [facility]#: [id number] Admission: 02/15/19 Attend Phys: Angie Brandt MD Discharge: Date of : 32 Date of Service: 02/20/19 1318 Report #: [id number] THIS REPORT FOR: //name// APPROVED REPORT Study performed: 02/20/2019 10:50:11 Indication: Chest pain, Dyspnea Patient Location: In-Patient Room #: 210 Stress Tech: Rhiannon Chun Stress Nurse: Georgia Orourke RN Ht: 5 ft 5 in Wt: 225 lbs BSA: 2.08 m2 HR: 68 bpm BP: 144/78 mmHg BMI: 37.43 Rhythm: NSR Medical History Medical History: CHF, Pacemaker, CAD s/p [place] Medications: Losartan, Aspirin, Furosemide, , Carvedilol, Xarelto, Atorvastatin, Clopidogrel, K-Dur Allergies: No known drug allergies Cardiac Risk Factors: Age, Hyperlipidemia, HTN, FHX of CAD Previous Cardiac Procedures: PCI, Myocardial infarction Resting Data Rest SPECT myocardial perfusion imaging was performed in supine position 30 minutes following the intravenous injection of 36.9 mCi of Tc-99m Sestamibi. Time of rest injection: 13:30 Date: 02/16/2019 The images were gated to evaluate regional wall motion and calculate left ventricular ejection fraction. Administration Route: IV Administration Site: Left Wrist Pharmacologic Stress Pharmacologic stress test was performed by injecting Regadenoson 0.4 mg IV push over 10-15 seconds immediately followed by the intravenous injection of 35.6 mCi of Tc-99m Sestamibi. Time of stress injection: 10:45 Date: 02/20/2019 Administration Route: IV Administration Site: Left Wrist Heart Rate at time of stress injection: 82 bpm. Gated Stress SPECT was performed 40 [place] [address] CARDIAC NUCLEAR IMAGING REPORT Name: TEODORO LYN Room: [address]#: [id number] Admission: 02/15/19 Attend Phys: Angie Brandt MD Discharge: Date of : 32 Date of Service: 02/20/19 1318 Report #: [id number] injection. The images were gated to evaluate regional wall motion and calculate left ventricular ejection fraction. Stress Test Details Stress Test: Pharmacologic stress testing performed using 0.4 mg of regadenoson per 5 mL given IV over 10 seconds. Reason for pharmacologic stress test: physical limitation. HR Max Heart Rate (APMHR): 133 bpm Resting HR: 68 bpm Target HR (85% APMHR): 113 bpm Max HR Achieved: 82 bpm % of APMHR: 61 Recovery HR: 68 bpm HR response to stress: Normal HR response to stress BP Resting BP: 144/78 mmHg Max BP: 114/64 mmHg Recovery BP: 132/85 mmHg BP response to stress: Normal blood pressure response to stress. ECG Resting ECG: ventricularly paced rhythm with occasional PVCs Stress ECG: ventricularly paced rhythm with occasional PVCs ST Change: None Recovery ECG: ventricularly paced rhythm with occasional PVCs Recovery ST Change: None Clinical Reason for Termination: Completed protocol Stress Symptoms: Chest tightness Exercise capacity: 1.00 METs Patient had mild chest tightness with Lexiscan infusion likely due to medication effect in light of myocardial perfusion imaging findings. Stress ECG Conclusion The baseline 12-lead EKG shows ventricular pacing with occasional PVC. EKGs obtained during and post Lexiscan infusion show continued ventricular pacing with occasional PVCs[place] [address] CARDIAC NUCLEAR IMAGING REPORT Name: TEODORO LYN Room: [address]#: [id number] Admission: 02/15/19 Attend Phys: Angie Brandt MD Discharge: Date of : 32 Date of Service: 02/20/19 1318 Report #: [id number] Study: Good Artifact: No artifact Study Data At rest, the left ventricular ejection fraction was 36%.. Post stress, the left ventricular ejection was 37%.. TID = 0.86. Perfusion There is a large in size severe intensity fixed defect involving the inferior and inferolateral wall with prior infarct. There was no evidence of anemia. Wall Motion The left ventricle is dilated. There is akinesis of the inferolateral wall. There is a focal area of the apex that is dyskinetic. Nuclear Conclusion ECG Findings: non-diagnostic Clinical Findings: equivocal Nuclear Findings: negative for ischemia Exercise Capacity: not assessed Left Ventricular Function: abnormal Perfusion images show evidence of large in size prior infarct involving the inferior and inferolateral wall. Global LV systolic function is moderate to severely decreased. The left ventricle is dilated. Findings consistent with nonischemic cardiomyopathy. This is a moderate to high risk study based on moderate to severe left ventricular systolic dysfunction. <Conclusion> The baseline 12-lead EKG shows ventricular pacing with occasional PVC. EKGs obtained during and post Lexiscan infusion show continued ventricular pacing with occasional PVCs. <ELECTRONICALLY SIGNED> By: Fred Avila MD, FACC 02/20/19 1318 1318 Fred Avila MD, FACC /INF
--- NOTE | 2019-02-20 16:06 | NUR ---
ASSUMED PT CARE AT 0700, PT A&O X4, UP WITH ASSIST X1 AND WALKER, VSS, REMAINS ON 4LPM O2 VIA NC, RN FIELD TRACING VPACED WITH PVC'S, FULL ASSESSMENT CHARTED. PT DISCHARGED HOME WITH HOME HEALTH VIA AT APPROX 1550 WITH . EDUCATED ON ALL DISCHARGE INSTRUCTIONS INCLUDING FOLLOW UP APPOINTMENTS AND MEDICATIONS. IV AND RN FIELD REMOVED, HOURLY ROUNDING COMPLETED.
== END 2019-02-20 15:50 | disposition home health service (06) | DRG 391 ==
LOC: M.ERS 19:32 → M.TBA-ER 21:38 → M.2W 21:38
PROVIDERS: Emergency Medicine Emergency Medical Services; Internal Medicine; ADMIT Family Medicine
DX: K22.4 Dyskinesia of esophagus (principal); I50.33 Acute on chronic diastolic (congestive) heart failure; E43 Unspecified severe protein-calorie malnutrition; J18.1 Lobar pneumonia, unspecified organism; J96.21 Acute and chronic respiratory failure with hypoxia; Z96.652 Presence of left artificial knee joint; E78.5 Hyperlipidemia, unspecified; I49.5 Sick sinus syndrome; M19.90 Unspecified osteoarthritis, unspecified site; H35.30 Unspecified macular degeneration; G47.33 Obstructive sleep apnea (adult) (pediatric); I48.2 Chronic atrial fibrillation; I11.0 Hypertensive heart disease with heart failure; Z68.33 Body mass index [BMI] 33.0-33.9, adult; I25.2 Old myocardial infarction; Z95.5 Presence of coronary angioplasty implant and graft; Z82.49 Family history of ischemic heart disease and other diseases of the circulatory system; Z87.442 Personal history of urinary calculi; Z85.828 Personal history of other malignant neoplasm of skin; Z95.0 Presence of cardiac pacemaker; Z90.49 Acquired absence of other specified parts of digestive tract; Z79.82 Long term (current) use of aspirin; Z79.899 Other long term (current) drug therapy; Z88.1 Allergy status to other antibiotic agents; Z88.6 Allergy status to analgesic agent; Z79.01 Long term (current) use of anticoagulants

== ENCOUNTER → 2019-06-12 | Outpatient (CLI) | payer MEDICARE ==
[~2019-06-12] MED LIST changes: +FISH OIL 1,001000 M2 PO; +MINOCYCLINE HC100 MG PO
== END ==
LOC: M.RAD 12:35
DX: J98.11 Atelectasis (principal); I11.0 Hypertensive heart disease with heart failure; I50.9 Heart failure, unspecified

== ENCOUNTER 2019-06-24 08:02 | Inpatient (IN) | payer MEDICARE ==
[~2019-06-24] VITALS: Ht 165.1 cm; Wt 87.3 kg
[~2019-06-24 08:02] MED LIST changes: -MINOCYCLINE HC100 MG PO
[2019-06-24 08:09] VITALS: BP 133/62
[2019-06-24 08:42] LABS: ABSOLUTE BASOPHILS 0.1 thou/uL (0.0-0.2); ABSOLUTE EOSINOPHILS 0.1 thou/uL (0.0-0.7); ABSOLUTE LYMPHOCYTES 1.1 thou/uL (0.8-5.3); ABSOLUTE MONOCYTES 1.2 thou/uL (0.0-1.2); ABSOLUTE NEUTROPHILS 7.5 thou/uL (1.6-8.1); BASOPHILS 0.7 %; EOSINOPHILS 1.2 %; HEMATOCRIT 32.8 % (42.0-52.0); HEMOGLOBIN 11.2 gm/dL (14.0-18.0); LYMPHOCYTES 10.6 %; MCH 32.3 pg (26.0-34.0); MONOCYTES 12.1 %; MPV 7.6 fl. (7.2-11.1); NUCLEATED RBCS 0 /100WBC; PLATELET COUNT* 222 thou/uL (150-400); POLYS 75.4 %; RBC 3.45 mil/uL (4.50-6.00); RDW-CV 13.5 % (10.5-14.5)
[2019-06-24 08:52] LABS: CALCIUM 8.7 mg/dL (8.5-10.1); CREATININE 0.9 mg/dL (0.6-1.3)
[2019-06-24 08:53] LABS: POTASSIUM 4.1 mmol/L (3.5-5.1)
[2019-06-24 08:57] LABS: ALBUMIN 3.1 g/dL (3.4-5.0); TOTAL BILIRUBIN 1.3 mg/dL (<0.1-1.0); TOTAL PROTEIN 7.2 g/dL (6.4-8.2)
--- NOTE | 2019-06-24 11:12 | NUR ---
REPORT GIVEN TO KARAN BOYER WHO IS TO ASSUME PT CARE INPATIENT NURSE.
[2019-06-24 11:14] VITALS: BP 129/69
[2019-06-24 11:29] VITALS: BP 136/98
[2019-06-24 21:35] VITALS: BP 127/61
[2019-06-25 04:04] LABS: ABSOLUTE EOSINOPHILS 0.1 thou/uL (0.0-0.7); ABSOLUTE LYMPHOCYTES 1.1 thou/uL (0.8-5.3); ABSOLUTE MONOCYTES 0.9 thou/uL (0.0-1.2); ABSOLUTE NEUTROPHILS 5.4 thou/uL (1.6-8.1); BASOPHILS 0.4 %; EOSINOPHILS 1.5 %; HEMATOCRIT 31.3 % (42.0-52.0); HEMOGLOBIN 10.4 gm/dL (14.0-18.0); LYMPHOCYTES 14.5 %; MCH 32.2 pg (26.0-34.0); MCHC 33.3 g/dL (28.0-37.0); MCV 96.5 fL (80.0-100.0); MONOCYTES 11.9 %; MPV 7.7 fl. (7.2-11.1); NUCLEATED RBCS 0 /100WBC; POLYS 71.7 %; RBC 3.24 mil/uL (4.50-6.00); RDW-CV 13.7 % (10.5-14.5); WBC 7.6 thou/uL (4.0-11.0)
[2019-06-25 04:05] LABS: PLATELET COUNT* 145 thou/uL (150-400)
--- NOTE | 2019-06-25 04:31 | NUR ---
ASSUMED CARE OF PT 06/24/19 AT APPROX 1930, PT A&OX4 THROUGHOUT SHIFT, PT ON CPAP THROUGHOUT NIGHT, PAIN MEDS REQUESTED AND GIVEN ORDERED, ASSESSMENTS AND HOURLY ROUNDINGS COMPLETED. WILL CONTINUE TO MONITOR.
[2019-06-25 07:52] VITALS: BP 149/85
[2019-06-25 15:26] LABS: URINE BILIRUBIN NEGATIVE (Negative); URINE BLOOD NEGATIVE (Negative); URINE CLARITY CLEAR; URINE COLOR YELLOW; URINE GLUCOSE-RANDOM NEGATIVE (Negative); URINE KETONES NEGATIVE (Negative); URINE LEUKOCYTES-REFLEX NEGATIVE (Negative); URINE NITRITE-REFLEX NEGATIVE (Negative); URINE PROTEIN NEGATIVE (Negative); URINE UROBILINOGEN 0.2 E.U./dl (0.2-1.0)
[2019-06-25 16:54] VITALS: BP 128/57
--- NOTE | 2019-06-25 19:12 | NUR ---
RECEIVED REPORT FROM GONZALO RUSSO. ASSUMED CARE OF PT AROUND 1030, PT A&O X4. VSS. THIS RN AGREES WITH THE ASSESSMENT AND CHARTING OF GONZALO RUSSO. MEDS PER EMAR. PT UP WITH ASSIST X1 AND GAIT BELT TO BEDSIDE COMMODE TO VOID SEVERAL TIMES THIS SHIFT. BM THIS AFTERNOON. PT REPORTING PAIN TO RIGHT HAND - IV PAIN MEDICATION GIVEN WITH PARTIAL RELEIF. PT HAD VISITORS IN AND OUT OF ROOM FREQUENTLY TODAY. PT ABLE TO SIT UP IN BEDSIDE CHAIR FOR MEALS. ID CONSULTED AND SAW PT TODAY. MRSA SWAB OBTAINED AND SENT DOWN. UA COLLECTED. PT CURRENTLY RESTING IN BED. CALL LIGHT IS WITHIN REACH. HOURLY ROUNDING PERFORMED. FALL PRECAUTIONS IN PLACE.
[2019-06-25 20:00] VITALS: BP 133/82
[2019-06-26 04:35] LABS: ABSOLUTE EOSINOPHILS 0.1 thou/uL (0.0-0.7); ABSOLUTE LYMPHOCYTES 1.1 thou/uL (0.8-5.3); ABSOLUTE MONOCYTES 1.3 thou/uL (0.0-1.2); ABSOLUTE NEUTROPHILS 6.7 thou/uL (1.6-8.1); BASOPHILS 0.5 %; EOSINOPHILS 1.3 %; HEMATOCRIT 30.9 % (42.0-52.0); HEMOGLOBIN 10.6 gm/dL (14.0-18.0); LYMPHOCYTES 11.6 %; MCH 32.7 pg (26.0-34.0); MCHC 34.5 g/dL (28.0-37.0); MCV 94.8 fL (80.0-100.0); MPV 7.4 fl. (7.2-11.1); NUCLEATED RBCS 0 /100WBC; PLATELET COUNT* 155 thou/uL (150-400); POLYS 72.6 %; RBC 3.26 mil/uL (4.50-6.00); RDW-CV 13.2 % (10.5-14.5); WBC 9.2 thou/uL (4.0-11.0)
--- NOTE | 2019-06-26 04:47 | NUR ---
ASSUMED PATIENT CARE AT 1900. PATIENT WORE CPAP UNTIL APPROX 0400. AFTER REMOVING CPAP, PATIENT WENT INTO A CHOKING/COUGHING SPELL FOR SEVERAL MINUTES. REMAINS ON HOME DOSE O2 AT 4L AT THIS TIME. COMPLAINTS OF PAIN NOTED, RATES AT A 10. STATES THAT HE HAS THE SAME PAIN AT HOME. MOTOR MAN AND HOURLY ROUNDING COMPLETED CHARTED.
--- NOTE | 2019-06-26 07:57 | CON ---
[address] [address] CONSULTATION Name: TEODORO LYN Room: [address] IN M.R.#: [id number] Admission: 06/24/19 Attend Phys: Doreen Zapata Discharge: Date of : 31 Report #: [id number] THIS REPORT FOR: //name// CC: Sharon Christi Hood DATE OF SERVICE: 06/25/2019 INFECTIOUS DISEASE CONSULTATION ATTENDING PHYSICIAN: Dr. Hood. REASON FOR EVALUATION: Right upper extremity inflammatory eruption, suspected component of skin and soft tissue infection with cellulitis. HISTORY OF PRESENT ILLNESS: Chart reviewed, patient examined. This is an 88-year-old with extensive medical history including cardiomyopathy, presented with complaints of right upper extremity pain. It became quite severe, progressive, started initially at the hand, progressed proximally, now involves pain in the shoulder, although the inflammation is not as marked certainly, denied any antecedent injury. 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 Generally, he has been eating fairly well. He has undergoing issues with breathing difficulties as per the evaluation. He has had elevated uric acid of 5.4 and has a remote history of gout he states. Blood cultures are sterile thus far. Initial white count was normal as was the differential, CRP elevated at 108.7. Lactic acid 1.0. Initial chest x-ray, chronic changes, otherwise no acute process. He was empirically started on combination therapy with azithromycin and ceftriaxone. ALLERGIES: OXYCODONE, ASPIRIN, CIPRO, AND MIDAZOLAM. CURRENT MEDICATIONS: Include colchicine, azithromycin, ceftriaxone, furosemide, fish oil, aspirin, clopidogrel, finasteride, atorvastatin, rivaroxaban, p.r.n. analgesics. PAST MEDICAL HISTORY: As described above, history of coronary artery disease, previous stenting x 4, hypertension, cardiomyopathy with congestive heart failure, history of renal lithiasis, prostate surgery, tonsillectomy, nutcracker esophagus, atrial fibrillation. SOCIAL HISTORY: Nonsmoker, no ethanol, no illicit drug use. FAMILY HISTORY: [place] [address] CONSULTATION Name: TEODORO LYN LUCAS Room: [address]#: [id number] Admission: 06/24/19 Attend Phys: Doreen Zapata Discharge: Date of : 31 Report #: [id number] REVIEW OF SYSTEMS: Otherwise unremarkable with the exception of the above. Weight has been somewhat stable, but had lost considerable weight during hospitalization months prior. PHYSICAL EXAMINATION: GENERAL: He appears chronically ill, undernourished. He is in moderate distress, marked at times with manipulation of his right upper extremity. VITAL SIGNS: T-max of 100.2, more recently 98.4, pulse of 57, respirations 18, blood pressure 127/61. SKIN: Warm, dry and several contused areas of pressure on his limbs. HEENT: Normocephalic. Extraocular muscles intact. NECK: Supple. LUNGS: Diminished breath sounds. Scattered wheezes, there are some crackles and coarse sounds as well. HEART: Regular, distant. I do not appreciate a murmur. ABDOMEN: Soft, nontender, nondistended. EXTREMITIES: Right upper extremity is exquisitely tender to palpation essentially throughout its length, although there is not significant surface inflammation noted from about the mid portion of the forearm proximally to the shoulder. AND RECTAL: Deferred. LABORATORY DATA: Initial CBC: White count 10.0, H and H 11.2 and 32.8 and platelets of 222. Electrolytes: Sodium 141, potassium 4.1, chloride 103, bicarbonate 27, anion gap of 11, BUN and creatinine 20 and 0.9, total bilirubin 1.3. LFTs unremarkable. Albumin of 3.1. Total protein 7.2. Lactic acid 1.0. ASSESSMENT: Right upper extremity inflammatory eruption, likely multifactorial, certainly cannot exclude a component of skin and soft tissue infection with cellulitis. We will continue empiric antimicrobial therapy. Re-adjust regimen and encourage elevation in case it is exquisitely painful for him, to add compression at this point hopefully in the near future. Secondly, we will add incentive spirometry. Certainly at risk for nosocomial-related issues. He is tenuous. <ELECTRONICALLY SIGNED> By: Enrrique Kothari MD 06/26/19 0757 1218 1321Enrrique Kothari MD /nt
[2019-06-26 08:15] VITALS: BP 105/56
[2019-06-26 15:52] VITALS: BP 118/47
--- NOTE | 2019-06-26 19:50 | NUR ---
I ASSUMED CARE OF THE PATIENT AT 0700. HE IS ALERT AND ORIENTED X4 AND IS UP X 1 WITH ASSISTANCE. HE NEEDS TRAY SETUP WITH ONE HAND. TEST WERE COMPLETED TODAY. FAMILY WONDERS IF HE SHOULD D/C TO AN LTC SORT OF FACILITY. BED IS IN THE LOW LOCKED POSITION AND CALL LIGHT IS IN REACH. HOURLY ROUNDING WAS COMPLETED AND PATIENT NEEDS ARE MET. PAIN IS MANAGED WITH PRN MEDS. WILL CONTINUE TO MONITOR.
[2019-06-26 20:00] VITALS: BP 110/59
--- NOTE | 2019-06-27 03:34 | NUR ---
ASSUMED CARE FROM DAY SHIFT PT RESTING IN BED , PT ABLE TO TOLERATE PO MEDICATION, RIGHT HAND RED AND SWOLLEN , PAIN MEDICATION GIVEN PRESCRIBED. PT REFUSED HIS CPAP BUT REQUESTED TO WEAR 02 INSTEAD SAT 97% ON 4L NC. OCCASIONAL COUGH NOTED. PT RESTED WELL THROUGHOUT HOURLY ROUNDS.
[2019-06-27 08:00] VITALS: BP 126/93
--- NOTE | 2019-06-27 15:22 | NUR ---
SPOKE WITH ESTHER WITH CARDIOLOGY RE: IS MRI SAFE FOR MRI. PHONE NUMBER FOR [facility] PROVIDED. SPOKE TO [facility] REP. HE STATED THAT DEVICE WAS PLACED BY [facility] BUT LEADS WERE NOT AND THEY ARE UNABLE TO VERIFY THAT THEY ARE SAFE FOR MRI. IT IS NOT RECCOMMENDED THAT PT UNDERGO MRI. ORTHO NOTIFIED
[2019-06-27 16:04] VITALS: BP 129/54
--- NOTE | 2019-06-27 16:30 | NUR ---
PT.ALERT AND ORIENTED. VERY TALKATIVE. VERY GOOD MEMORY OF PAST HOSPITATLIZATIONS,ETC. PT.SAID HE LIVES WITH HIS . SHE DRIVES. HE WAS INDEPENDENT PRIOR TO HIS HAND PAIN/SWELLING. HIS R HAND IS EXTREMELY PAINFUL, MAYBE A LITTLE BETTER TODAY. HE SAID HE CHANGED HIS CLOTHES AND GAVE HIMSELF A SPIT BATH BY HIMSELF. HE HAS 4 WALKERS-(2 UPSTAIRS AND 2 DOWNSTAIRS), A CANE, CPAP AND O2 THROUGH [facility]. HE HAS 7 PORTABLE O2 TANKS. PT.HAS A HX OF [facility] FOR HOME HEALTH. HE WOULD USE THEM AGAIN. HE WENT TO SNF AT THE [facility] A COUPLE OF YEARS AGO. HE WOULD NEVER GO BACK THERE HE SAID. HE IS NOT SURE HE WOULD WANT TO GO TO ANY SNF. CM WILL FOLLOW .
--- NOTE | 2019-06-27 18:29 | NUR ---
PT RESTING IN BED THROUGHOUT SHIFT. REPORTS PAIN TO RIGHT HAND. REFUSES ELEVATION OR ICE. PAIN MEDS GIVEN ORDERED. TOLERATING PO WELL
[2019-06-27 21:20] VITALS: BP 108/47
--- NOTE | 2019-06-28 06:30 | NUR ---
PATIENT HAS SLEPT WELL THROUGHOUT THE NIGHT. VSS ON 4L 02 VIA NASAL CANNULA. MEDICATIONS GIVEN ORDERED AND CHARTED. PATIENT WORE CPAP AT NIGHT. ASSESSMENT CHARTED. IV IN LEFT FOREARM-SL. IV ABT GIVEN ORDERED AND CHARTED. PATIENT STATES THAT RIGHT HAND IS FEELING MUCH BETTER THAN IN PRIOR DAYS. HAND IS STILL WARM TO TOUCH AND SLIGHTLY RED AND EDEMATOUS. PATIENT INSTRUCTED TO USE CALL LIGHT WHEN NEEDING ASSISTANCE. HOURLY ROUNDS MADE. WILL CONTINUE WITH PLAN OF CARE AND NURSING TO MONITOR.
[2019-06-28 07:40] VITALS: BP 113/48
[2019-06-28 10:02] LABS: ABSOLUTE EOSINOPHILS 0.2 thou/uL (0.0-0.7); ABSOLUTE LYMPHOCYTES 0.7 thou/uL (0.8-5.3); ABSOLUTE NEUTROPHILS 5.3 thou/uL (1.6-8.1); BASOPHILS 0.5 %; EOSINOPHILS 2.6 %; HEMATOCRIT 30.7 % (42.0-52.0); HEMOGLOBIN 10.4 gm/dL (14.0-18.0); LYMPHOCYTES 9.5 %; MCH 32.2 pg (26.0-34.0); MCHC 33.9 g/dL (28.0-37.0); MCV 95.1 fL (80.0-100.0); MONOCYTES 14.2 %; MPV 7.5 fl. (7.2-11.1); NUCLEATED RBCS 0 /100WBC; PLATELET COUNT* 172 thou/uL (150-400); POLYS 73.2 %; RBC 3.23 mil/uL (4.50-6.00); RDW-CV 13.6 % (10.5-14.5); WBC 7.2 thou/uL (4.0-11.0)
[2019-06-28 10:33] LABS: ALBUMIN 2.2 g/dL (3.4-5.0); CALCIUM 8.6 mg/dL (8.5-10.1); CREATININE 0.9 mg/dL (0.6-1.3); POTASSIUM 3.3 mmol/L (3.5-5.1); TOTAL BILIRUBIN 0.7 mg/dL (<0.1-1.0); TOTAL PROTEIN 6.2 g/dL (6.4-8.2)
[2019-06-28 12:10] VITALS: BP 132/61
[2019-06-28 16:20] VITALS: BP 121/55
--- NOTE | 2019-06-28 17:08 | NUR ---
PATIENT UP TO CHAIR FOR MEALS. PATIENT UP WITH MAX OF 2 TO BSC. [address], PATIENT NOTED TO BE 85% RA SO PLACED BACK ON 4L. SAT THIS EVENING 97% ON 4L NC. PRN TYLENOL #3 GIVEN THIS SHIFT FOR RIGHT ARM PAIN. IV REMAINS SL, SCHED IV ABX INFUSED ORDERED. CATHIE WRAP TO RIGHT ARM. US OF RIGHT ARM THIS AFTERNOON. PATIENT GIVEN PILLS CRUSHED IN PUDDING DUE TO DIFFICULTY WITH NUTCRACKERS ESOPHAGUS.
[2019-06-28 22:00] VITALS: BP 110/47
--- NOTE | 2019-06-29 07:23 | NUR ---
PATIENT HAS SLEPT OFF AND ON DURING THE NIGHT. VSS ON 4L 02 VIA NASAL CANNULA. MEDICATIONS GIVEN ORDERED-CRUSHED AND GIVEN WITH PUDDING PER PATIENT REQUEST. IV IN LEFT FOREARM-SL. COMPRESSION DRESSING TO RIGHT HAND/WRIST-SKIN IS STILL EDEMATOUS,SLIGHTLY RED, AND WARM TO TOUCH, ALTHOUGH PATIENT STATES THAT HIS HAND/WRIST IS FEELING MUCH BETTER THAN IT WAS, PATIENT DOES NOT KEEP HAND/WRIST ELEVATED BUT ENCOURAGED TO DO SO. ASSESSMENTT CHARTED. PATIENT INSTRUCTED TO USE CALL LIGHT WHEN NEEDING ASSISTANCE. HOURLY ROUNDS MADE. WILL CONTINUE WITH PLAN OF CARE AND NURSING TO MONITOR.
[2019-06-29 07:50] VITALS: BP 121/58
--- NOTE | 2019-06-29 14:12 | NUR ---
SPOKE WITH PT. ABOUT PROBABLE DISCHARGE OVER THE WEEKEND. HE SAID WOULD LIKE HIME TO GO TO A SNF BUT HE WILL NOT GO. HAD A VERY BAD EXPERIENCE WHEN HE WENT TO SNF AFTER HIP SURGERY. ALSO SAID HE NEEDS TO BE THERE FOR HIS . SHE IS STARTING TO HAVE MEMORY PROBLEMS. HE SAID HIS DAUGHTER LIVES CLOSE, WELL A SON. DAUGHTER COMES DURING THE DAY WHILE SHE IS NOT WORKING. SHE WORKS A SPLIT SHIFT. HE SAID WHEN HE AND BUILT THERE HOME, THEY BUILT IT HANDICAP ACCESIBLE. HE THINKS HE WILL DO FINE AT HOME. HE SAID HIS HAND IS SO MUCH BETTER THAN WHEN HE CAME IN. HE WOULD LIKE TO USE [facility] HE USED THEM IN THE PAST AND HE SAID 'THEY WERE WONDERFUL'. CONTACTED [facility] AND FAXED REFERRAL. FINAL ORDERS NEED TO BE FAXED AT DISCHARGE TO [facility]. [phone].
[2019-06-29 14:21] VITALS: BP 121/58
--- NOTE | 2019-06-29 15:05 | NUR ---
OT WILL DC AT THIS TIME, PT IS AT [facility] AND DEMONSTRATES SD TO SUPERVISION WITH ALL SELFCARES RW LEVEL
--- NOTE | 2019-06-29 16:13 | NUR ---
PATIENT UP TO CHAIR WITH ASSISTANCE, PATIENT MUCH BETTER WITH TRANSFERS X 1 TODAY. PATIENT TRANSFERRING WITH ASSISTANCE OF 2 YESTERDAY. 02 RA 97% AT REST. PATIENT STATED THAT THERAPY CHECKED HIS 02 SAT ON RA WHILE UP AMBULATING AND HE DID NOT DESAT ACCORDING TO STAFF. IV SL, FLUSHING WITHOUT DIFFICULTY. PO ABX STARTED THIS AM. CONTINUED TO CRUSH PILLS AND PLACE IN PUDDING. AT BEDSIDE THROUGHOUT THE SHIFT. RIGHT ARM REWRAPPED THIS AM AND ELEVATED.
[2019-06-29 16:30] VITALS: BP 125/62
[2019-06-29 20:30] VITALS: BP 101/64
--- NOTE | 2019-06-30 04:38 | NUR ---
PT A&O X 4, VSS RA. MEDS GIVEN ORDERED. NO C/O PAIN. ISOLATION MAINTAINED. POLAR CARE, SCDS, LISA JAIMES BILAT IN PLACE. DRESSING TO LT KNEE C/D/I. WORKED ON CPM ORDERED. NO NAUSEA OR VOMITING. NO VOIDING ISSUES. PT SLEEPING WELL THROUGH THE NIGHT. WILL CONTINUE TO MONITOR.
--- NOTE | 2019-06-30 05:09 | NUR ---
VSS ON RA, O2 SAT 96% PT ON 4L BY NC WHILE SLEEPING. MEDS CRUSHED AND GIVEN WITH PUDDING. RT HAND STILL RED, SWOLLEN, ELEVATED ON PILLOW. PT SLEEPING THROUGH THE NIGHT. HOURLY ROUNDING COMPLETED. WILL CONTINUE TO MONITOR.
[2019-06-30 07:30] VITALS: BP 117/66
[2019-06-30 08:36] VITALS: BP 117/66
[2019-06-30] MEDS ORDERED: MINOCYCLINE HC100 MG PO (10:39)
--- NOTE | 2019-06-30 11:13 | NUR ---
PT DISCHARGED TO HOME WITH HH AND LEFT UNIT ABOUT 1055 BY WHEELCHAIR WITH AND NURSING STAFF. IV OUT. PAIN CONTROLLED. DENIED N/V. PERSONAL BELONGINGS SENT WITH PT. PAPER SCRIPT AND CARE NOTES SENT WITH PT. PT STABLE UPON DISCHARGE
== END 2019-06-30 10:55 | disposition home health service (06) | DRG 602 ==
LOC: M.ERS 08:02 → M.TBA-ER 09:26 → M.ORTHSURG 09:26
PROVIDERS: Emergency Medicine Emergency Medical Services; Specialist; ADMIT Internal Medicine
PROC: 5A09357 Assistance with Respiratory Ventilation, Less than 24 Consecutive Hours, Continuous Positive Airway Pressure (ICD-10-PCS; principal; 2019-06-25)
DX: L03.113 Cellulitis of right upper limb (principal); J69.0 Pneumonitis due to inhalation of food and vomit; I42.9 Cardiomyopathy, unspecified; I50.42 Chronic combined systolic (congestive) and diastolic (congestive) heart failure; E44.0 Moderate protein-calorie malnutrition; M65.821 Other synovitis and tenosynovitis, right upper arm; M10.9 Gout, unspecified; K22.4 Dyskinesia of esophagus; I25.10 Atherosclerotic heart disease of native coronary artery without angina pectoris; I48.91 Unspecified atrial fibrillation; E78.00 Pure hypercholesterolemia, unspecified; M19.90 Unspecified osteoarthritis, unspecified site; G47.33 Obstructive sleep apnea (adult) (pediatric); D64.9 Anemia, unspecified; I11.0 Hypertensive heart disease with heart failure; Z95.5 Presence of coronary angioplasty implant and graft; Z95.0 Presence of cardiac pacemaker; Z90.49 Acquired absence of other specified parts of digestive tract; Z85.828 Personal history of other malignant neoplasm of skin; Z87.442 Personal history of urinary calculi; Z79.82 Long term (current) use of aspirin; Z79.899 Other long term (current) drug therapy; Z79.2 Long term (current) use of antibiotics; Z88.1 Allergy status to other antibiotic agents; Z88.8 Allergy status to other drugs, medicaments and biological substances; Z28.21 Immunization not carried out because of patient refusal

== ENCOUNTER 2019-07-13 14:43 | Emergency (ER) | payer MEDICARE ==
[~2019-07-13] VITALS: Ht 165.1 cm; Wt 83.6 kg
[~2019-07-13 14:43] MED LIST changes: +MINOCYCLINE HC100 MG PO
[2019-07-13 17:21] LABS: ABSOLUTE EOSINOPHILS 0.2 thou/uL (0.0-0.7); ABSOLUTE LYMPHOCYTES 1.3 thou/uL (0.8-5.3); ABSOLUTE MONOCYTES 0.5 thou/uL (0.0-1.2); ABSOLUTE NEUTROPHILS 2.9 thou/uL (1.6-8.1); BASOPHILS 0.9 %; EOSINOPHILS 4.7 %; HEMATOCRIT 29.2 % (42.0-52.0); LYMPHOCYTES 25.6 %; MCH 32.1 pg (26.0-34.0); MCHC 34.3 g/dL (28.0-37.0); MCV 93.8 fL (80.0-100.0); MONOCYTES 10.3 %; MPV 7.1 fl. (7.2-11.1); NUCLEATED RBCS 0 /100WBC; PLATELET COUNT* 210 thou/uL (150-400); POLYS 58.5 %; RBC 3.12 mil/uL (4.50-6.00); RDW-CV 14.5 % (10.5-14.5); WBC 4.9 thou/uL (4.0-11.0)
[2019-07-13 17:25] LABS: CALCIUM 8.6 mg/dL (8.5-10.1); CREATININE 0.9 mg/dL (0.6-1.3); POTASSIUM 3.9 mmol/L (3.5-5.1)
[2019-07-13 17:29] LABS: APTT 36.5 Seconds (25.0-31.3); INR 1.3
[2019-07-13 17:32] LABS: ALBUMIN 2.7 g/dL (3.4-5.0); TOTAL BILIRUBIN 0.4 mg/dL (<0.1-1.0); TOTAL PROTEIN 6.2 g/dL (6.4-8.2)
[2019-07-13 18:50] VITALS: BP 135/80
== END 2019-07-13 18:51 | disposition home or self-care (01) ==
LOC: M.ERS 14:43
PROVIDERS: Personal Emergency Response Attendant
DX: M79.89 Other specified soft tissue disorders (principal); I48.91 Unspecified atrial fibrillation; I10 Essential (primary) hypertension; Z95.5 Presence of coronary angioplasty implant and graft; Z90.49 Acquired absence of other specified parts of digestive tract; Z85.828 Personal history of other malignant neoplasm of skin; Z88.1 Allergy status to other antibiotic agents; Z88.5 Allergy status to narcotic agent; Z88.8 Allergy status to other drugs, medicaments and biological substances

== ENCOUNTER 2019-09-16 09:22 | Emergency (ER) | payer MEDICARE ==
[~2019-09-16] VITALS: Ht 165.1 cm; Wt 89.6 kg
[2019-09-16] MEDS ORDERED: PRESERVISION A1 EAC2 PO (09:42)
[2019-09-16 10:30] LABS: ABSOLUTE EOSINOPHILS 0.2 thou/uL (0.0-0.7); ABSOLUTE LYMPHOCYTES 0.9 thou/uL (0.8-5.3); ABSOLUTE MONOCYTES 0.4 thou/uL (0.0-1.2); ABSOLUTE NEUTROPHILS 4.5 thou/uL (1.6-8.1); BASOPHILS 0.2 %; EOSINOPHILS 3.9 %; HEMATOCRIT 28.1 % (42.0-52.0); HEMOGLOBIN 9.5 gm/dL (14.0-18.0); LYMPHOCYTES 15.5 %; MCH 32.4 pg (26.0-34.0); MCHC 33.6 g/dL (28.0-37.0); MCV 96.4 fL (80.0-100.0); MPV 7.6 fl. (7.2-11.1); NUCLEATED RBCS 0 /100WBC; PLATELET COUNT* 136 thou/uL (150-400); POLYS 74.4 %; RBC 2.92 mil/uL (4.50-6.00); RDW-CV 15.7 % (10.5-14.5); WBC 6.1 thou/uL (4.0-11.0)
[2019-09-16 10:38] LABS: CALCIUM 7.9 mg/dL (8.5-10.1); CREATININE 0.8 mg/dL (0.6-1.3); POTASSIUM 3.6 mmol/L (3.5-5.1)
[2019-09-16 10:40] LABS: APTT 28.9 Seconds (25.0-31.3); INR 1.2; PROTIME 12.6 Seconds (9.20-11.50)
[2019-09-16 10:43] LABS: TOTAL BILIRUBIN 0.5 mg/dL (<0.1-1.0); TOTAL PROTEIN 5.9 g/dL (6.4-8.2)
[2019-09-16 12:01] VITALS: BP 112/58
--- NOTE | 2019-09-17 08:45 | EKG ---
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 Operator: MICHAEL : 1930 Requested By: Mati Jacome Order Number: [id number] MD: Garrett Oscar Measurements Intervals [place] Rate: 74 P: 0 ID: 50 QRS: -68 QRSD: 195 T: 111 QT: 464 QTc: 515 Interpretive Statements Ventricular-paced rhythm No further analysis attempted due to paced rhythm Compared to ECG 02/15/2019 19:36:13 no change Electronically Signed On 09-17-2019 8:44:40 SOCIAL STUDIES DEPARTMENT CHAIR by Garrett Oscar [email or web address] <ELECTRONICALLY SIGNED> By: Garrett Oscar MD, [facility] 09/17/19 0844 0932 Garrett Oscar MD, [facility] /EPI
== END 2019-09-16 11:55 | disposition short-term general hospital (02) ==
LOC: M.ERS 09:22
PROVIDERS: Family Medicine
DX: S22.080A Wedge compression fracture of T11-T12 vertebra, initial encounter for closed fracture (principal); S27.329A Contusion of lung, unspecified, initial encounter; S50.02XA Contusion of left elbow, initial encounter; I48.91 Unspecified atrial fibrillation; I11.0 Hypertensive heart disease with heart failure; I50.9 Heart failure, unspecified; Z85.828 Personal history of other malignant neoplasm of skin; Z90.49 Acquired absence of other specified parts of digestive tract; Z95.1 Presence of aortocoronary bypass graft; Z87.442 Personal history of urinary calculi; Z88.1 Allergy status to other antibiotic agents; Z88.5 Allergy status to narcotic agent; Z88.8 Allergy status to other drugs, medicaments and biological substances; W18.39XA Other fall on same level, initial encounter; Y92.89 Other specified places as the place of occurrence of the external cause; Y93.89 Activity, other specified; Y99.8 Other external cause status

== ENCOUNTER 2021-04-28 14:55 | Emergency (ER) | payer MEDICARE ==
[~2021-04-28] VITALS: Ht 170.2 cm; Wt 81.2 kg
[2021-04-28] MEDS ORDERED: TRAMADOL 50 MG50 MG PO (15:11)
[2021-04-28 15:21] LABS: ABSOLUTE EOSINOPHILS 0.1 thou/uL (0.0-0.7); ABSOLUTE LYMPHOCYTES 0.9 thou/uL (0.8-5.3); ABSOLUTE MONOCYTES 0.8 thou/uL (0.0-1.2); ABSOLUTE NEUTROPHILS 5.9 thou/uL (1.6-8.1); BASOPHILS 0.6 %; EOSINOPHILS 1.6 %; HEMATOCRIT 35.1 % (42.0-52.0); HEMOGLOBIN 11.9 gm/dL (14.0-18.0); LYMPHOCYTES 11.6 %; MCH 32.1 pg (26.0-34.0); MCV 94.4 fL (80.0-100.0); MPV 6.9 fl. (7.2-11.1); NUCLEATED RBCS 0 /100WBC; PLATELET COUNT* 160 thou/uL (150-400); POLYS 76.2 %; RBC 3.71 mil/uL (4.50-6.00); RDW-CV 13.9 % (10.5-14.5); WBC 7.7 thou/uL (4.0-11.0)
[2021-04-28 15:38] LABS: CALCIUM 9.1 mg/dL (8.5-10.1); CREATININE 0.9 mg/dL (0.6-1.3); POTASSIUM 3.6 mmol/L (3.5-5.1)
[2021-04-28 15:42] LABS: ALBUMIN 3.1 g/dL (3.4-5.0); TOTAL PROTEIN 6.5 g/dL (6.4-8.2)
[2021-04-28] MEDS ORDERED: HYDROCODON-ACE1 EAC7 PO (17:50)
[2021-04-28 17:57] VITALS: BP 150/75
== END 2021-04-28 17:58 | disposition home or self-care (01) ==
LOC: M.ERS 14:55
PROVIDERS: Physician Assistant
DX: R33.9 Retention of urine, unspecified (principal); G89.29 Other chronic pain; M79.604 Pain in right leg; M79.605 Pain in left leg; R11.0 Nausea; I48.91 Unspecified atrial fibrillation; R10.9 Unspecified abdominal pain; I11.0 Hypertensive heart disease with heart failure; I50.30 Unspecified diastolic (congestive) heart failure; Z95.5 Presence of coronary angioplasty implant and graft; Z95.0 Presence of cardiac pacemaker; Z90.49 Acquired absence of other specified parts of digestive tract; Z98.890 Other specified postprocedural states; Z90.89 Acquired absence of other organs; Z79.899 Other long term (current) drug therapy; Z79.82 Long term (current) use of aspirin; Z88.1 Allergy status to other antibiotic agents; Z88.6 Allergy status to analgesic agent

== ENCOUNTER 2021-05-04 12:37 | Inpatient (IN) | payer MEDICARE ==
[~2021-05-04] VITALS: Ht 165.1 cm; Wt 72.1 kg
[~2021-05-04 12:37] MED LIST changes: +TRAMADOL 50 MG50 MG PO
[2021-05-04 12:42] VITALS: BP 161/69
[2021-05-04 12:57] LABS: ABSOLUTE BASOPHILS 0.1 thou/uL (0.0-0.2); ABSOLUTE EOSINOPHILS 0.3 thou/uL (0.0-0.7); ABSOLUTE MONOCYTES 0.7 thou/uL (0.0-1.2); ABSOLUTE NEUTROPHILS 4.8 thou/uL (1.6-8.1); BASOPHILS 0.8 %; EOSINOPHILS 4.2 %; HEMATOCRIT 34.8 % (42.0-52.0); HEMOGLOBIN 11.7 gm/dL (14.0-18.0); LYMPHOCYTES 14.5 %; MCH 31.9 pg (26.0-34.0); MCHC 33.7 g/dL (28.0-37.0); MCV 94.5 fL (80.0-100.0); MONOCYTES 10.3 %; MPV 6.5 fl. (7.2-11.1); NUCLEATED RBCS 0 /100WBC; PLATELET COUNT* 184 thou/uL (150-400); POLYS 70.2 %; RBC 3.68 mil/uL (4.50-6.00); RDW-CV 14.1 % (10.5-14.5); WBC 6.8 thou/uL (4.0-11.0)
[2021-05-04 13:09] LABS: CALCIUM 8.4 mg/dL (8.5-10.1); CREATININE 0.9 mg/dL (0.6-1.3); POTASSIUM 3.7 mmol/L (3.5-5.1)
[2021-05-04 13:20] LABS: ALBUMIN 2.8 g/dL (3.4-5.0); TOTAL BILIRUBIN 0.8 mg/dL (<0.1-1.0); TOTAL PROTEIN 6.2 g/dL (6.4-8.2)
--- NOTE | 2021-05-04 13:45 | EKG ---
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
[2021-05-04] MEDS ORDERED: NORVASC5 MG PO (13:54)
[2021-05-04] MEDS ORDERED: AZELASTIN-FLUTI23 GM NASAL (13:56)
[2021-05-04] MEDS ORDERED: IMDUR 60 MG TAB60 M1 PO (13:57)
[2021-05-04] MEDS ORDERED: FUROSEMIDE 40 M40 MG PO (13:59)
[2021-05-04 18:52] VITALS: BP 136/67
[2021-05-04 20:00] VITALS: BP 155/72
[2021-05-04] MEDS ORDERED: REFRESH CLASSI1 EACH OPHTHALMIC (20:57)
[2021-05-05] VITALS: BP 105/52
[2021-05-05 04:00] VITALS: BP 125/66
[2021-05-05 04:33] LABS: HEMATOCRIT 33.7 % (42.0-52.0); HEMOGLOBIN 11.3 gm/dL (14.0-18.0); MCH 31.8 pg (26.0-34.0); MCHC 33.6 g/dL (28.0-37.0); MCV 94.6 fL (80.0-100.0); MPV 6.5 fl. (7.2-11.1); RBC 3.56 mil/uL (4.50-6.00); RDW-CV 14.3 % (10.5-14.5); WBC 7.3 thou/uL (4.0-11.0)
[2021-05-05 04:49] LABS: CALCIUM 8.2 mg/dL (8.5-10.1); POTASSIUM 3.5 mmol/L (3.5-5.1)
[2021-05-05 08:00] VITALS: BP 133/65
[2021-05-05 09:00] VITALS: BP 133/65
[2021-05-05 16:00] VITALS: BP 93/45
[2021-05-06] VITALS (7 sets, daily range): BP systolic 101–124; BP diastolic 47–58
[2021-05-06 05:09] LABS: HEMOGLOBIN 10.2 gm/dL (14.0-18.0); MCH 32.4 pg (26.0-34.0); MCHC 34.1 g/dL (28.0-37.0); MCV 94.9 fL (80.0-100.0); MPV 6.8 fl. (7.2-11.1); RBC 3.16 mil/uL (4.50-6.00); RDW-CV 14.3 % (10.5-14.5); WBC 7.4 thou/uL (4.0-11.0)
[2021-05-06 05:18] LABS: CREATININE 1.4 mg/dL (0.6-1.3); POTASSIUM 3.4 mmol/L (3.5-5.1)
[2021-05-06] MEDS ORDERED: APAP W/CODEINE1 TA2 PO (10:10)
--- NOTE | 2021-05-06 14:32 | 2DMMODE ---
[place] [address] 2 D/M-MODE ECHOCARDIOGRAM Name: TEODORO LYN LUCAS Room: [address] IN .R.#: [id number] Admission: 05/04/21 Attend Phys: Prerna Ordonez, Discharge: Date of : 32 Date of Service: 05/06/21 1432 Report #: [id number] THIS REPORT FOR: cc: Sharon Barraza MD, Katrina MD Blick,Garrett Li MD [facility] ~ APPROVED REPORT Study performed: 05/06/2021 13:29:59 EXAM: Comprehensive 2D, Doppler, and color-flow Echocardiogram Patient Location: Out-Patient BSA: 1.79 HR: 62 bpm BP: 120/58 mmHg Other Information Study Quality: Good Indications Congestive Heart Failure 2D Dimensions IVSd: 11.04 (7-11mm) LVOT Diam: 20.55 (18-24mm) LVDd: 51.29 mm PWd: 8.86 (7-11mm) Ascending Ao: 31.63 (22-36mm) LVDs: 27.47 (25-40mm) Aortic Root: 29.44 mm Volumes Left Atrial Volume (Systole) LA ESV Index: 49.80 mL/m2 Aortic Valve AoV Peak Isaac.: 1.65 m/s AO Peak Gr.: 10.93 mmHg LVOT Max P.98 mmHg AO Mean Gr.: 5.89 mmHg LVOT Mean P.69 mmHg LVOT Max V: 1.00 m/s AO V2 VTI: 29.48 cm LVOT Mean V: 0.59 m/s ANDREA (VTI): 1.72 cm2 LVOT V1 VTI: 15.30 cm Mitral Valve E/A Ratio: 1.88 [place] [address] 2 D/M-MODE ECHOCARDIOGRAM Name: TEODORO LYN Room: [address] IN [facility]#: [id number] Admission: 05/04/21 Attend Phys: Prerna Ordonez, Discharge: Date of : 32 Date of Service: 05/06/21 1432 Report #: [id number] MV Decel. Time: 157.47 ms MV E Max Isaac.: 0.77 m/s MV PHT: 45.67 ms MVA (PHT): 4.82 cm2 TDI E/Lateral E': 5.92 E/Medial E': 5.13 Medial E' Isaac.: 0.15 m/s Lateral E' Isaac.: 0.13 m/s Pulmonary Valve PV Peak Isaac.: 1.09 m/s PV Peak Gr.: 4.77 mmHg Tricuspid Valve RAP Estimate: 5.00 mmHg TR Peak Gr.: 31.98 mmHg RVSP: 36.98 mmHg PA Pressure: 36.98 mmHg Left Ventricle The left ventricle is normal size. Paradoxical septal motion There is normal left ventricular wall thickness. Left ventricular systolic function is normal. The left ventricular ejection fraction is within the normal range. LVEF is 50-55%. This study is not technically sufficient to allow evaluation of the LV diastolic function due to atrial fibrillation. Right Ventricle The right ventricle is normal size. The right ventricular systolic function is normal. Pacemaker lead is present in the right ventricle. Atria Left atrium is moderately dilated. Right atrium is moderately dilated. Aortic Valve Mild aortic valve sclerosis. No aortic regurgitation is present. There is no aortic valvular stenosis. Mitral Valve The mitral valve is normal in structure. There is trace mitral valve regurgitation noted. No evidence of mitral valve stenosis. Tricuspid Valve The tricuspid valve is normal in structure. Mild to moderate tricuspid regurgitation. estimated pa pressure 40 [place] [address] 2 D/M-MODE ECHOCARDIOGRAM Name: TEODORO LYN Room: [address] IN [facility]#: [id number] Admission: 05/04/21 Attend Phys: Prerna Ordonez, Discharge: Date of : 32 Date of Service: 05/06/21 1432 Report #: [id number] Pulmonic Valve The pulmonary valve is normal in structure. There is trace pulmonic valvular regurgitation. Great Vessels The aortic root is normal in size. IVC is normal in size and collapses >50% with inspiration. Pericardium There is no pericardial effusion. <Conclusion> LVEF is 50-55%. Left atrium is moderately dilated. Right atrium is moderately dilated. Mild aortic valve sclerosis. Mild to moderate tricuspid regurgitation. estimated pa pressure 40 mm Hg <ELECTRONICALLY SIGNED> By: Garrett Oscar MD, FACC 05/06/21 [phone] Garrett Oscar MD, FACC /INF
== END 2021-05-06 15:44 | disposition home health service (06) | DRG 515 ==
LOC: M.ERS 12:37 → M.2W 15:22 → M.TBA-ER 15:22 → M.2W 19:34
PROVIDERS: Family Medicine; ADMIT Internal Medicine; ATTEND Internal Medicine
PROC: 0QU03JZ Supplement Lumbar Vertebra with Synthetic Substitute, Percutaneous Approach (ICD-10-PCS; principal; 2021-05-05)
PROC: 0QS03ZZ Reposition Lumbar Vertebra, Percutaneous Approach (ICD-10-PCS; 2021-05-05)
DX: M48.56XA Collapsed vertebra, not elsewhere classified, lumbar region, initial encounter for fracture (principal); I50.43 Acute on chronic combined systolic (congestive) and diastolic (congestive) heart failure; M48.54XA Collapsed vertebra, not elsewhere classified, thoracic region, initial encounter for fracture; Z20.822 Contact with and (suspected) exposure to COVID-19; Z98.49 Cataract extraction status, unspecified eye; I48.91 Unspecified atrial fibrillation; M19.90 Unspecified osteoarthritis, unspecified site; D64.9 Anemia, unspecified; G47.33 Obstructive sleep apnea (adult) (pediatric); I11.0 Hypertensive heart disease with heart failure; K22.4 Dyskinesia of esophagus; Z66 Do not resuscitate; Z95.5 Presence of coronary angioplasty implant and graft; Z95.0 Presence of cardiac pacemaker; Z90.49 Acquired absence of other specified parts of digestive tract; Z88.6 Allergy status to analgesic agent; Z88.1 Allergy status to other antibiotic agents; Z88.8 Allergy status to other drugs, medicaments and biological substances; Z74.01 Bed confinement status; Z79.899 Other long term (current) drug therapy

== ENCOUNTER 2021-06-08 11:58 | Emergency (ER) | payer MEDICARE ==
[~2021-06-08] VITALS: Ht 182.9 cm; Wt 80.2 kg
[~2021-06-08 11:58] MED LIST changes: +APAP W/CODEINE1 TA2 PO; +AZELASTIN-FLUTI23 GM NASAL; +FUROSEMIDE 40 M40 MG PO; +NORVASC5 MG PO; +REFRESH CLASSI1 EACH OPHTHALMIC
[2021-06-08] MEDS ORDERED: XANAX 0.5 MG0.5 MG PO (12:16)
[2021-06-08] MEDS ORDERED: LIPITOR20 MG PO (12:17)
[2021-06-08] MEDS ORDERED: CALCIUM MAGNES1 EAC2 PO (12:17)
[2021-06-08] MEDS ORDERED: FUROSEMIDE 40 M40 MG PO (12:19)
[2021-06-08] MEDS ORDERED: IRON (12:20)
[2021-06-08] MEDS ORDERED: ISOSORBIDE MON120 MG PO (12:21)
[2021-06-08] MEDS ORDERED: XOLEGEL45 GM (12:23)
[2021-06-08] MEDS ORDERED: DIOVAN 80 MG TA80 M1 PO (12:24)
[2021-06-08] MEDS ORDERED: NITROSTAT0.4 M1 SUBLING (12:25)
[2021-06-08] MEDS ORDERED: SUPER THERAVIT1 EACH PO (12:25)
[2021-06-08 12:51] LABS: ABSOLUTE BASOPHILS 0.1 thou/uL (0.0-0.2); ABSOLUTE EOSINOPHILS 0.2 thou/uL (0.0-0.7); ABSOLUTE LYMPHOCYTES 0.8 thou/uL (0.8-5.3); ABSOLUTE MONOCYTES 0.9 thou/uL (0.0-1.2); BASOPHILS 0.8 %; EOSINOPHILS 1.9 %; HEMATOCRIT 30.7 % (42.0-52.0); HEMOGLOBIN 10.6 gm/dL (14.0-18.0); LYMPHOCYTES 9.4 %; MCH 32.6 pg (26.0-34.0); MCHC 34.5 g/dL (28.0-37.0); MCV 94.4 fL (80.0-100.0); MONOCYTES 9.9 %; MPV 6.8 fl. (7.2-11.1); NUCLEATED RBCS 0 /100WBC; PLATELET COUNT* 211 thou/uL (150-400); RBC 3.26 mil/uL (4.50-6.00); RDW-CV 15.2 % (10.5-14.5)
--- NOTE | 2021-06-08 12:58 | EKG ---
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: : 1930 Requested By: Apple Brasher Order Number: [id number] MD: Tucker Rodriguez Measurements Intervals [place] Rate: 60 P: 0 MN: 165 QRS: -76 QRSD: 198 T: 98 QT: 476 QTc: 476 Interpretive Statements Ventricular-paced complexes No further analysis attempted due to paced rhythm Compared to ECG 05/04/2021 12:57:52 No significant changes Electronically Signed On 06-08-2021 12:58:39 MUSIC LIBRARY ASSISTANT by Tucker Rodriguez [email or web address] <ELECTRONICALLY SIGNED> By: Tucker Rodriguez MD, FAC 06/08/21 1258 1215 1215 Tucker Rodriguez MD, [facility] /EPI
[2021-06-08 13:04] LABS: CALCIUM 8.5 mg/dL (8.5-10.1); CREATININE 0.9 mg/dL (0.6-1.3); POTASSIUM 3.4 mmol/L (3.5-5.1)
[2021-06-08 13:14] LABS: ALBUMIN 2.5 g/dL (3.4-5.0); MAGNESIUM 1.7 mg/dL (1.8-2.4); TOTAL BILIRUBIN 0.5 mg/dL (<0.1-1.0)
[2021-06-08] MEDS ORDERED: TRAMADOL 50 MG50 MG PO (13:48)
[2021-06-08 16:20] VITALS: BP 122/72
== END 2021-06-08 16:21 | disposition home or self-care (01) ==
LOC: M.ERS 11:58
PROVIDERS: Nurse Practitioner Family
DX: G89.29 Other chronic pain (principal); Z20.822 Contact with and (suspected) exposure to COVID-19; M54.50 Low back pain, unspecified; M16.11 Unilateral primary osteoarthritis, right hip; M48.061 Spinal stenosis, lumbar region without neurogenic claudication; I50.9 Heart failure, unspecified; M19.90 Unspecified osteoarthritis, unspecified site; Z79.899 Other long term (current) drug therapy; Z88.6 Allergy status to analgesic agent; Z88.5 Allergy status to narcotic agent; Z88.1 Allergy status to other antibiotic agents

== ENCOUNTER 2021-06-15 14:28 | Inpatient (IN) | payer MEDICARE ==
[~2021-06-15] VITALS: Ht 182.9 cm; Wt 71.7 kg
[~2021-06-15 14:28] MED LIST changes: +DIOVAN 80 MG TA80 M1 PO; +IRON; +ISOSORBIDE MON120 MG PO; +NITROSTAT0.4 M1 SUBLING; +SUPER THERAVIT1 EACH PO; +XANAX 0.5 MG0.5 MG PO; +XOLEGEL45 GM
[2021-06-15 14:29] VITALS: BP 166/79
[2021-06-15 14:59] LABS: ABSOLUTE EOSINOPHILS 0.1 thou/uL (0.0-0.7); ABSOLUTE LYMPHOCYTES 0.8 thou/uL (0.8-5.3); ABSOLUTE MONOCYTES 0.9 thou/uL (0.0-1.2); BASOPHILS 0.3 %; EOSINOPHILS 0.6 %; HEMATOCRIT 34.1 % (42.0-52.0); HEMOGLOBIN 11.5 gm/dL (14.0-18.0); LYMPHOCYTES 7.3 %; MCHC 33.7 g/dL (28.0-37.0); MONOCYTES 8.5 %; MPV 6.6 fl. (7.2-11.1); NUCLEATED RBCS 0 /100WBC; PLATELET COUNT* 251 thou/uL (150-400); POLYS 83.3 %; RBC 3.59 mil/uL (4.50-6.00); RDW-CV 15.1 % (10.5-14.5); WBC 10.8 thou/uL (4.0-11.0)
[2021-06-15 15:07] LABS: CALCIUM 8.8 mg/dL (8.5-10.1); CREATININE 0.9 mg/dL (0.6-1.3); POTASSIUM 3.8 mmol/L (3.5-5.1)
[2021-06-15 15:12] LABS: ALBUMIN 2.7 g/dL (3.4-5.0); TOTAL PROTEIN 6.5 g/dL (6.4-8.2)
[2021-06-15 18:40] VITALS: BP 111/57
[2021-06-15 20:50] VITALS: BP 111/57
[2021-06-15 21:17] VITALS: BP 125/62
[2021-06-16 04:35] VITALS: BP 108/54
[2021-06-16 08:25] VITALS: BP 129/63
[2021-06-16 16:21] VITALS: BP 124/76
[2021-06-16 20:00] VITALS: BP 106/54
[2021-06-17 04:00] VITALS: BP 124/61
[2021-06-17 15:27] VITALS: BP 132/67
[2021-06-17 16:00] VITALS: BP 113/58
[2021-06-17 20:00] VITALS: BP 135/62
[2021-06-18 07:56] VITALS: BP 132/69
[2021-06-18] MEDS ORDERED: FENTANYL1 EAC2 TRANSDERM (11:56)
[2021-06-18] MEDS ORDERED: DILAUDID 2 MG TA2 MG PO (11:56)
[2021-06-18 15:30] VITALS: BP 118/67
[2021-06-18 20:00] VITALS: BP 114/61
[2021-06-19 08:25] VITALS: BP 169/86
[2021-06-19 12:29] VITALS: BP 169/86
[2021-06-19 18:27] VITALS: BP 169/86
[2021-06-19 18:59] VITALS: BP 169/86
== END 2021-06-19 18:51 | disposition hospice, home (50) | DRG 552 ==
LOC: M.ERS 14:28 → M.TBA-ER 14:44 → M.ORTHSURG 21:07 → M.3W 06-18 06:34
PROVIDERS: Emergency Medicine; ADMIT Internal Medicine; ATTEND Internal Medicine
DX: M47.896 Other spondylosis, lumbar region (principal); D68.59 Other primary thrombophilia; I48.20 Chronic atrial fibrillation, unspecified; E44.0 Moderate protein-calorie malnutrition; I50.9 Heart failure, unspecified; N40.0 Benign prostatic hyperplasia without lower urinary tract symptoms; I11.0 Hypertensive heart disease with heart failure; G89.29 Other chronic pain; Z20.822 Contact with and (suspected) exposure to COVID-19; Z95.0 Presence of cardiac pacemaker; I25.2 Old myocardial infarction; Z88.6 Allergy status to analgesic agent; Z88.1 Allergy status to other antibiotic agents; Z88.8 Allergy status to other drugs, medicaments and biological substances; Z82.49 Family history of ischemic heart disease and other diseases of the circulatory system; Z95.5 Presence of coronary angioplasty implant and graft; Z79.01 Long term (current) use of anticoagulants; Z68.21 Body mass index [BMI] 21.0-21.9, adult